=== PATIENT | female | born 1950 | race Caucasian/White ===

== ENCOUNTER → 2016-09-09 | Outpatient (CLI) | payer MEDICARE, OTHER ==
--- NOTE | 2016-09-09 11:56 | US ---
EXAMINATION: Ultrasound guided right thyroid biopsy HISTORY: Nodule COMPARISON: 08/23/2016 TECHNIQUE: The procedure, risks, and benefits were discussed with the patient. Informed consent was obtained. The overlying area was sterilely prepped and draped. 1% lidocaine was administered for loc al anesthesia. Using ultrasound guidance a total of 2 18-gauge core biopsies were obtained. The mark ent tolerated the procedure well. No immediate complications. IMPRESSION: Successful ultrasound-guided core biopsy of a right thyroid nodule.
== END ==
LOC: MW.US 10:09
PROVIDERS: ATTEND Family Medicine
DX: E04.1 Nontoxic single thyroid nodule (principal)
CPT/HCPCS: 60100; 60100-RT; 88305

== ENCOUNTER 2017-03-20 10:51 | Emergency (ER) | payer MEDICARE, OTHER ==
[2017-03-20 11:32] VITALS: BP 172/74
[2017-03-20] MEDS ORDERED: Ondansetron 4 MG Tab.DIS PO ONE (11:35)
[2017-03-20] MEDS ORDERED: Morphine 4 MG/ML Syringe IM ONE (11:35)
--- NOTE | 2017-03-20 11:45 | EDM.PDOC ---
ED HPI GENERAL MEDICAL PROBLEM - General Chief Complaint: Upper Extremity Injury/Pain Stated Complaint: LT SHOULDER PAIN Time Seen by Provider: 03/20/17 11:20 Source of Information: Reports: Patient History Limitations: Reports: No Limitations - History of Present Illness INITIAL COMMENTS - FREE TEXT/NARRATIVE: HISTORY AND PHYSICAL: History of present illness: Patient is a 66-year-old female who presents to the emergency room with complaints of left shoulder, elbow and wrist pain after falling onto her left side off of 2 steps. She states that she has been having difficulty with her right lower extremity which "will give out". She currently is seeing a provider and is having further evaluation of her right lower extremity. Today she was going up the stairs and her right leg gave out" and she fell on the left shoulder. She denies any head injury or loss of consciousness. Resting on the cot, the patient is guarding her arm and towards her body. She is able to wiggle her fingers and has a good strong radial pulse. She states when she starts moving the left elbow pain does shoot down into her left wrist. She is declining to attempt to move the left shoulder. Review of systems: As per history of present illness and below otherwise all systems reviewed and negative. Past medical history: As per history of present illness and as reviewed below otherwise noncontributory. Surgical history: As per history of present illness and as reviewed below otherwise noncontributory. Social history: No reported history of drug or alcohol abuse. Family history: As per history of present illness and as reviewed below otherwise noncontributory. Physical exam: HEENT: Atraumatic, normocephalic, pupils reactive, negative for conjunctival pallor or scleral icterus, mucous membranes moist, throat clear, neck supple, nontender, trachea midline. Lungs: Clear to auscultation, breath sounds equal bilaterally, chest nontender. Heart: S1S2, regular, negative for clicks, rubs, or JVD. Abdomen: Soft, nondistended, nontender. Negative for masses or hepatosplenomegaly. Negative for costovertebral tenderness. Pelvis: Stable nontender. Genitourinary: Deferred. Rectal: Deferred. Extremities: Due to pain the patient is unwilling to attempt range of motion of the left shoulder. Good flexion and extension of the left elbow and wrist, strong radial pulse, capillary refill less than 3 seconds. Denies any numbness or tingling negative for cords or calf pain. Neurovascular unremarkable. Skin: Intact, warm, dry. No open sores, abrasions or lesions. Neuro: Awake, alert, oriented. Cranial nerves II through XII unremarkable. Cerebellum unremarkable. Motor and sensory unremarkable throughout. Exam nonfocal. Patient reports that she is unable to take any form of NSAIDs. I did offer her morphine IM, her family members at the bedside and states she will give her a ride after today's visit. Sling has been applied by nursing staff for comfort. Dr. Olivares also reviewed the x-ray and radiology findings and is agreeable with plan of care. A sugar tong splint was applied to the left upper extremity and secured with a sling. Her menses are closed today, a instrument prescription for Alden 5/325 was prescribed the patient, #30 - NRF. Discussed follow-up with the orthopedic provider. She states she has appointment on 03/25/2017 for evaluation of her right lower extremity. I did request that she called the clinic tomorrow and inform them of her new injury as this will take precedence over her initial appointment. We discussed signs and symptoms that would prompt her to come back to the emergency room. Family is at bedside and also heard this conversation and is agreeable. Patient voices understanding and is agreeable to plan of care. She denies any further questions at this time. Diagnostics: X-ray left shoulder, elbow, wrist Therapeutics: Zofran, morphine Impression: Left shoulder injury Fracture of the proximal left humerus with pseudosubluxation of the humeral head Plan: 1. Please keep the splint on the extremity. The sling is to keep the extremity elevated and to prevent mobility. Rest and ice the extremity. 2. Please take the Alden as prescribed. This medication is a narcotic so please do not drive or take while working as it may cause drowsiness. Zofran has been prescribed to to prevent any nausea. He may take 1 tablet every 8 hours as needed. 3. Call tomorrow to arrange a follow-up appointment with the orthopedist. You stated to have an appointment on 03/25/2017, please inform them that you were seen in the emergency room and need to use that appointment slot for the fracture. 4. Follow-up as we discussed. Return to the ED as needed and as discussed. Definitive disposition and diagnosis as appropriate pending reevaluation and review of above. Onset: Today Duration: Hour(s): Location: Reports: Upper Extremity, Left Right shoulder Pain Score (Numeric/FACES): 6 - Related Data Allergies Allergy/AdvReac Type Severity Reaction Status Date / Time codeine Allergy Vomiting Verified 03/20/17 11:40 Penicillins Allergy Anaphylactic Verified 03/20/17 11:40 Shock Sulfa (Sulfonamide Allergy Facial Verified 03/20/17 11:40 Antibiotics) Swelling Home Meds: Home Meds Meloxicam [Mobic] 15 mg PO DAILY 09/21/13 [History] atorvaSTATin [Lipitor] 10 mg PO BEDTIME 09/21/13 [History] metFORMIN [Glucophage XR] 500 mg PO ASDIRECTED 09/21/13 [History] Aspirin [Adult Low Dose Aspirin EC] 81 mg PO DAILY 09/22/13 [History] Fish Oil/[place]-3 Fatty Acids [Fish Oil 1,000 MG] 1,000 mg PO DAILY 09/22/13 [ History] Hydrocodone/Acetaminophen [Hydrocodon-Acetaminophn 10-325] 1 tab PO Q4H PRN #60 tablet 09/22/13 [Rx] Multivitamin [Multi-Vitamin Daily] 1 tab PO DAILY 09/22/13 [History] Cholecalciferol (Vitamin D3) [Vitamin D] 1 tab PO DAILY 02/22/14 [History] Glycerin/Propylene Glycol [Artificial Tears Drops] 1 drop EYEBOTH BID PRN [History] Biotin 5,000 mcg PO 03/20/17 [History] Losartan [Cozaar] 100 mg PO DAILY 03/20/17 [History] sitaGLIPtin Phos/Metformin HCl [Janumet Xr 100-1,000 mg Tablet] 1 tab PO DAILY 03/20/17 [History] Past Medical History Cardiovascular History: Reports: Hypertension Gastrointestinal History: Reports: GERD Genitourinary History: Reports: None Endocrine/Metabolic History: Reports: Diabetes, Type II - Infectious Disease History Infectious Disease History: Reports: Chicken Pox, Mumps - Past Surgical History Cardiovascular Surgical History: Reports: None Female Surgical History: Reports: Hysterectomy Musculoskeletal Surgical History: Reports: Other (See Below) Other Musculoskeletal Surgeries/Procedures:: left wrist pins, right ankle pins Social & Family History - Family History Family Medical History: Noncontributory - Tobacco Use Smoking Status *Q: Never Smoker Years of Tobacco use: 30 Used Tobacco, but Quit: Yes Second Hand Smoke Exposure: No - Caffeine Use Caffeine Use: Reports: Coffee, Energy Drinks, Soda, Tea - Alcohol Use Days Per Week of Alcohol Use: 0 Number of Drinks Per Day: 0 Total Drinks Per Week: 0 - Recreational Drug Use Recreational Drug Use: No Drug Use in Last 12 Months: No Review of Systems - Review of Systems Review Of Systems: ROS reveals no pertinent complaints other than HPI. ED EXAM, GENERAL - Physical Exam Exam: See Below (See dictation) Course - Vital Signs Last Recorded V/S: Last Vital Signs Temp 36.1 C 03/20/17 10:51 Pulse 76 03/20/17 10:51 Resp 16 03/20/17 10:51 BP 172/74 H 03/20/17 10:51 Pulse Ox 95 03/20/17 10:51 - Orders/Labs/Meds Orders: Active Orders 24 hr Category Date Time Status Communication Order [RC] STAT Care 03/20/17 12:15 Ordered Elbow 2V Lt [CR] Stat Exams 03/20/17 11:00 Taken Shoulder Comp Lt [CR] Stat Exams 03/20/17 11:00 Taken Wrist Comp Min 3V Lt [CR] Stat Exams 03/20/17 11:00 Taken Meds: Medications Discontinued Medications Generic Name Dose Route Start Last Admin Trade Name Charlene PRN Reason Stop Dose Admin Morphine Sulfate 4 mg 03/20/17 11:35 03/20/17 11:44 Morphine IM 03/20/17 11:36 4 mg ONETIME ONE Administration Ondansetron HCl 4 mg 03/20/17 11:35 03/20/17 11:45 Zofran Odt PO 03/20/17 11:36 4 mg ONETIME ONE Administration Departure - Departure Time of Disposition: 12:27 Disposition: Home, Self-Care 01 Clinical Impression: Fracture of humerus Qualifiers: Encounter type: initial encounter Humerus Location: proximal Fracture type: closed Fracture morphology: unspecified fracture morphology Laterality: left Qualified Code(s): S42.202A - Unspecified fracture of upper end of left humerus , initial encounter for closed fracture - Discharge Information Referrals: PCP,Unknown [Primary Care Provider] - Forms: ED Department Discharge Additional Instructions: My general discharge The following information is given to patients seen in the emergency department who are being discharged to home. This information is to outline your options for follow-up care. We provide all patients seen in our emergency department with a follow-up referral. The need for follow-up, as well as the timing and circumstances, are variable depending upon the specifics of your emergency department visit. If you don't have a primary care physician on staff, we will provide you with a referral. We always advise you to contact your personal physician following an emergency department visit to inform them of the circumstance of the visit and for follow-up with them and/or the need for any referrals to a consulting specialist. The emergency department will also refer you to a specialist when appropriate. This referral assures that you have the opportunity for follow-up care with a specialist. All of these measure are taken in an effort to provide you with optimal care, which includes your follow-up. Under all circumstances we always encourage you to contact your private physician who remains a resource for coordinating your care. When calling for follow-up care, please make the office aware that this follow-up is from your recent emergency room visit. If for any reason you are refused follow-up, please contact the [facility] Emergency Department at and asked to speak to the emergency department charge nurse. [facility] Primary Care [facility] [place] [id number] [facility] Specialty Care - Orthopedic Clinic Professional Building [address] [place] [address], [address] [place] [address] 1. Please keep the splint on the extremity. The sling is to keep the extremity elevated and to prevent mobility. Rest and ice the extremity. 2. Please take the Alden as prescribed. This medication is a narcotic so please do not drive or take while working as it may cause drowsiness. Zofran has been prescribed to to prevent any nausea. He may take 1 tablet every 8 hours as needed. 3. Call tomorrow to arrange a follow-up appointment with the orthopedist. You stated to have an appointment on 03/25/2017, please inform them that you were seen in the emergency room and need to use that appointment slot for the fracture. 4. Follow-up as we discussed. Return to the ED as needed and as discussed. - My Orders Last 24 Hours: My Active Orders 03/20/17 11:00 Elbow 2V Lt [CR] Stat Shoulder Comp Lt [CR] Stat Wrist Comp Min 3V Lt [CR] Stat 03/20/17 12:15 Communication Order [RC] STAT - Assessment/Plan Last 24 Hours: My Active Orders 03/20/17 11:00 Elbow 2V Lt [CR] Stat Shoulder Comp Lt [CR] Stat Wrist Comp Min 3V Lt [CR] Stat 03/20/17 12:15 Communication Order [RC] STAT
--- NOTE | 2017-03-21 13:14 | CR ---
EXAM DATE: 03/20/17 PATIENT'S AGE: 66 Patient: YING GRIMES Facility: [place], [place] Site . Site : 1950 Study: XRay Shoulder Left [id number]/2017 11:43:01 AM Ordering Physician: Doctor Wilkinson Final Report: INDICATION: Pain after fall. Technique: Three views of the left shoulder. Findings: Fracture of the surgical neck of the humerus. Fracture fragments in good position. Pseudosubluxation of the humeral head with respect to the glenoid fossa as a result of edema and blood within the joint. No true dislocation. Arthritic change about the glenohumeral joint space. Impression: Fracture of the proximal left humerus with pseudosubluxation of the humeral head with respect to the glenoid fossa. Dictated by Flaquito Andrade MD @ Mar 20 2017 11:51AM (Electronic Signature) Report Signed by Proxy. SUNIL
--- NOTE | 2017-03-21 13:14 | CR ---
EXAM DATE: 03/20/17 PATIENT'S AGE: 66 Patient: YING GRIMES Facility: [place], [place] Site . Site : 1950 Study: XRay Extremity Left Wrist [id number]/23/2017 11:42:07 AM Ordering Physician: Doctor Wilkinson Final Report: INDICATION: Pain after fall. Technique: Three views of the left wrist. Findings: No acute fracture or dislocation. Volar plate and screw fixation of a fracture of the radius. Hardware intact and in good position. Fracture line not visible. Soft tissues are unremarkable. Impression: 1. No acute fracture or dislocation. 2. ORIF left radius without complication. Dictated by Flaquito Andrade MD @ Mar 20 2017 11:49AM (Electronic Signature) Report Signed by Proxy. SUNIL
--- NOTE | 2017-03-21 13:15 | CR ---
EXAM DATE: 03/20/17 PATIENT'S AGE: 66 Patient: YING GRIMES Facility: [place], [place] Site . Site : 1950 Study: XRay Extremity Left Elbow [id number]/23/2017 11:44:08 AM Ordering Physician: Doctor Wilkinson Final Report: INDICATION: Pain after fall. Technique: Two views of the left elbow. Findings: No acute fracture, dislocation, or joint effusion. Impression: Negative left elbow. Dictated by Flaquito Andrade MD @ Mar 20 2017 11:53AM (Electronic Signature) Report Signed by Proxy. [facility]ERN[facility]ant
== END 2017-03-20 12:40 | disposition home or self-care (01) ==
LOC: MW.ED 10:51
DX: S42.202A Unspecified fracture of upper end of left humerus, initial encounter for closed fracture (principal); I10 Essential (primary) hypertension; E11.9 Type 2 diabetes mellitus without complications; Z98.890 Other specified postprocedural states; Z87.891 Personal history of nicotine dependence; Z79.82 Long term (current) use of aspirin; Z79.84 Long term (current) use of oral hypoglycemic drugs; Z79.899 Other long term (current) drug therapy; Z88.0 Allergy status to penicillin; Z88.2 Allergy status to sulfonamides; Z88.5 Allergy status to narcotic agent; W10.8XXA Fall (on) (from) other stairs and steps, initial encounter
CPT/HCPCS: 29105; 29799; 73030; 73070; 73110; 96372; 99283; A4566; A9270; J2270; 99284

== ENCOUNTER 2017-06-09 19:51 | Emergency (ER) | payer MEDICARE, OTHER ==
--- NOTE | 2017-06-09 20:15 | EDM.PDOC ---
ED HPI GENERAL MEDICAL PROBLEM - General Chief Complaint: Flank Pain Stated Complaint: POSSIBLE KIDNEY STONE Time Seen by Provider: 06/09/17 20:20 Source of Information: Reports: Patient History Limitations: Reports: No Limitations - History of Present Illness INITIAL COMMENTS - FREE TEXT/NARRATIVE: HISTORY AND PHYSICAL: History of present illness: [Patient comes to the emergency room complaining of left flank pain. Pain came on suddenly at 5 PM this evening. Patient has a history of kidney stones and these symptoms are consistent with previous episodes of kidney stones. Has had prior lithotripsy. In the past kidney stones only affected her right side, and this is her first event with pain on her left side. She complains of extreme nausea, and pain to her left flank radiating into her lower abdomen. She does not have an appetite due to the pain. She's not had any vomiting diarrhea or constipation. No chest pain shortness of breath or difficulty breathing. No headaches sore throat area. She has not had fever or chills. No burning with urination, urinary frequency.] Review of systems: As per history of present illness and below otherwise all systems reviewed and negative. Past medical history: As per history of present illness and as reviewed below otherwise noncontributory. Surgical history: As per history of present illness and as reviewed below otherwise noncontributory. Social history: No reported history of drug or alcohol abuse. Family history: As per history of present illness and as reviewed below otherwise noncontributory. Physical exam: Gen.: HEENT: Atraumatic, normocephalic. Oral mucous membranes are pink and moist. Lungs: Clear to auscultation, breath sounds equal bilaterally. Heart: S1S2, regular rate and rhythm. Abdomen: Obese, Soft, nondistended, nontender. Negative for masses, guarding or rebound. No CVA tenderness with percussion. Pelvis: Stable nontender. Genitourinary: Deferred. Rectal: Deferred. Extremities: Atraumatic, no swelling or cyanosis to her feet or lower legs. Neurovascular unremarkable. Neuro: Awake, alert, oriented. Motor and sensory unremarkable throughout. Exam nonfocal. Diagnostics: [CBC, CMP, UA, CT abdomen and pelvis without contrast] Therapeutics: [Morphine 2 mg IV, Zofran 4 mg IV 2, Toradol 30 mg IV, Flomax 0.4mg po] Impression: [4mm L kidney stone] Plan: [Patient will be discharged to home as her pain and nausea is completely resolved at this time. She is notified of CT results and advised to notify Dr. Raza's office tomorrow of huong's ER visit. She is given a prescription for Flomax 0.4 mg #10 one by mouth daily 0 refills, ketorolac 10 mg #20 sig one tablet by mouth every 6 hours as needed for pain 0 refills is sent to [facility]. She states that she has hydrocodone and a nausea medication at home that she will take when she needs it. Strict return precautions are reviewed she is in agreement with today's plan.] Definitive disposition and diagnosis as appropriate pending reevaluation and review of above. left flank Pain Score (Numeric/FACES): 10 - Related Data Allergies Allergy/AdvReac Type Severity Reaction Status Date / Time codeine Allergy Vomiting Verified 03/20/17 11:40 Penicillins Allergy Anaphylactic Verified 03/20/17 11:40 Shock Sulfa (Sulfonamide Allergy Facial Verified 03/20/17 11:40 Antibiotics) Swelling Home Meds: Home Meds Meloxicam [Mobic] 15 mg PO DAILY 09/21/13 [History] atorvaSTATin [Lipitor] 10 mg PO BEDTIME 09/21/13 [History] metFORMIN [Glucophage XR] 500 mg PO ASDIRECTED 09/21/13 [History] Aspirin [Adult Low Dose Aspirin EC] 81 mg PO DAILY 09/22/13 [History] Fish Oil/[place]-3 Fatty Acids [Fish Oil 1,000 MG] 1,000 mg PO DAILY 09/22/13 [ History] Hydrocodone/Acetaminophen [Hydrocodon-Acetaminophn 10-325] 1 tab PO Q4H PRN #60 tablet 09/22/13 [Rx] Multivitamin [Multi-Vitamin Daily] 1 tab PO DAILY 09/22/13 [History] Cholecalciferol (Vitamin D3) [Vitamin D] 1 tab PO DAILY 02/22/14 [History] Glycerin/Propylene Glycol [Artificial Tears Drops] 1 drop EYEBOTH BID PRN [History] Biotin 5,000 mcg PO 03/20/17 [History] Losartan [Cozaar] 100 mg PO DAILY 03/20/17 [History] sitaGLIPtin Phos/Metformin HCl [Janumet Xr 100-1,000 mg Tablet] 1 tab PO DAILY 03/20/17 [History] Past Medical History Cardiovascular History: Reports: Hypertension Gastrointestinal History: Reports: GERD Genitourinary History: Reports: None Endocrine/Metabolic History: Reports: Diabetes, Type II - Infectious Disease History Infectious Disease History: Reports: Chicken Pox, Mumps - Past Surgical History Cardiovascular Surgical History: Reports: None Female Surgical History: Reports: Hysterectomy Musculoskeletal Surgical History: Reports: Other (See Below) Other Musculoskeletal Surgeries/Procedures:: left wrist pins, right ankle pins Social & Family History - Family History Family Medical History: Noncontributory - Tobacco Use Smoking Status *Q: Never Smoker Years of Tobacco use: 30 Used Tobacco, but Quit: Yes Second Hand Smoke Exposure: No - Caffeine Use Caffeine Use: Reports: Coffee, Energy Drinks, Soda, Tea - Alcohol Use Days Per Week of Alcohol Use: 0 Number of Drinks Per Day: 0 Total Drinks Per Week: 0 - Recreational Drug Use Recreational Drug Use: No Drug Use in Last 12 Months: No ED ROS GENERAL - Review of Systems Review Of Systems: ROS reveals no pertinent complaints other than HPI. ED EXAM, RENAL/ - Physical Exam Exam: See Below Course - Vital Signs Last Recorded V/S: Last Vital Signs Temp 96 F 06/09/17 20:03 Pulse 68 06/09/17 20:03 Resp 22 H 06/09/17 20:03 BP 199/72 H 06/09/17 20:03 Pulse Ox 96 06/09/17 20:03 - Orders/Labs/Meds Orders: Active Orders 24 hr Category Date Time Status Abdomen Pelvis wo Cont [CT] Stat Exams 06/09/17 20:51 Taken Tamsulosin [Flomax] Med 06/09/17 21:35 Once 0.4 mg PO ONETIME ONE Labs: Laboratory Tests 06/09/17 06/09/17 06/09/17 Range/Units 20:20 20:25 20:25 WBC 10.90 (4.0-11.0) K/uL RBC 4.95 (4.30-5.90) M/uL Hgb 12.9 (12.0-16.0) g/dL Hct 38.7 (36.0-46.0) % MCV 78.2 L (80.0-98.0) fL MCH 26.1 L (27.0-32.0) pg MCHC 33.3 (31.0-37.0) g/dL RDW Std Deviation 39.4 (28.0-62.0) fl RDW Coeff of Jeff 14 (11.0-15.0) % Plt Count 217 (150-400) K/uL MPV 10.30 (7.40-12.00) fL Neut % (Auto) 74.6 (48.0-80.0) % Lymph % (Auto) 19.0 (16.0-40.0) % [place] % (Auto) 5.1 (0.0-15.0) % Eos % (Auto) 0.9 (0.0-7.0) % Baso % (Auto) 0.4 (0.0-1.5) % Neut # (Auto) 8.1 H (1.4-5.7) K/uL Lymph # (Auto) 2.1 (0.6-2.4) K/uL [place] # (Auto) 0.6 (0.0-0.8) K/uL Eos # (Auto) 0.1 (0.0-0.7) K/uL Baso # (Auto) 0.0 (0.0-0.1) K/uL Nucleated RBC % 0.0 /100WBC Nucleated RBCs # 0 K/uL Sodium 137 (136-146) mmol/L Potassium 4.7 (3.5-5.1) mmol/L Chloride 106 (98-110) mmol/L Carbon Dioxide 16 L (21-31) mmol/L BUN 12 (6.0-23.0) mg/dL Creatinine 0.7 (0.6-1.5) mg/dL Est Cr Clr Drug Dosing 58.85 mL/min Estimated GFR (MDRD) > 60.0 ml/min Glucose 216 H (60-110) mg/dL Calcium 9.8 (8.8-10.8) mg/dL Total Bilirubin 0.3 (0.1-1.5) mg/dL AST 16 (5-40) IU/L ALT 16 (8-54) IU/L Alkaline Phosphatase 84 (40-150) Total Protein 7.3 (6.0-8.0) g/dL Albumin 4.6 (3.4-4.8) g/dL Globulin 2.7 (2.0-3.5) g/dL Albumin/Globulin Ratio 1.7 (1.3-2.8) Urine Color YELLOW Urine Appearance SLT CLOUDY Urine pH 5.5 (5.0-8.0) Ur Specific [place] 1.020 (1.001-1.035) Urine Protein NEGATIVE (NEGATIVE) mg/dL Urine Glucose (UA) NEGATIVE (NEGATIVE) mg/dL Urine Ketones NEGATIVE (NEGATIVE) mg/dL Urine Occult Blood MODERATE (NEGATIVE) Urine Nitrite NEGATIVE (NEGATIVE) Urine Bilirubin NEGATIVE (NEGATIVE) Urine Urobilinogen 0.2 (<2.0) EU/dL Ur Leukocyte Esterase SMALL (NEGATIVE) Urine RBC 2-5 (0-2/HPF) Urine WBC 1-3 (0-5/HPF) Ur Epithelial Cells FEW (NONE-FEW) Urine Bacteria FEW (NEGATIVE) Meds: Medications Discontinued Medications Generic Name Dose Route Start Last Admin Trade Name Freq PRN Reason Stop Dose Admin Sodium Chloride 1,000 mls @ 999 mls/hr 06/09/17 20:22 06/09/17 20:36 Normal Saline IV 06/09/17 21:22 999 mls/hr STAT ONE Administration Ketorolac Tromethamine 30 mg 06/09/17 20:22 06/09/17 20:37 Toradol IVPUSH 06/09/17 20:23 30 mg ONETIME ONE Administration Morphine Sulfate 2 mg 06/09/17 20:22 06/09/17 20:37 Morphine IVPUSH 06/09/17 20:23 2 mg ONETIME ONE Administration Ondansetron HCl 4 mg 06/09/17 20:22 06/09/17 20:36 Zofran IVPUSH 06/09/17 20:23 4 mg ONETIME ONE Administration Ondansetron HCl 4 mg 06/09/17 21:27 06/09/17 21:32 Zofran IVPUSH 06/09/17 21:28 4 mg ONETIME ONE Administration - Re-Assessments/Exams Free Text/Narrative Re-Assessment/Exam: 06/09/17 21:28 Pain is now 0 out of 10. Nausea 5 out of 10. Zofran 4 mg IV as ordered. Waiting on results of CT. Departure - Departure Time of Disposition: 21:45 Disposition: Home, Self-Care 01 Condition: Good Clinical Impression: Kidney stone on left side - Discharge Information Referrals: Noel Tate MD [Primary Care Provider] - Forms: ED Department Discharge Additional Instructions: The following information is given to patients seen in the emergency department who are being discharged to home. This information is to outline your options for follow-up care. We provide all patients seen in our emergency department with a follow-up referral. The need for follow-up, as well as the timing and circumstances, are variable depending upon the specifics of your emergency department visit. If you don't have a primary care physician on staff, we will provide you with a referral. We always advise you to contact your personal physician following an emergency department visit to inform them of the circumstance of the visit and for follow-up with them and/or the need for any referrals to a consulting specialist. The emergency department will also refer you to a specialist when appropriate. This referral assures that you have the opportunity for follow-up care with a specialist. All of these measure are taken in an effort to provide you with optimal care, which includes your follow-up. Under all circumstances we always encourage you to contact your private physician who remains a resource for coordinating your care. When calling for follow-up care, please make the office aware that this follow-up is from your recent emergency room visit. If for any reason you are refused follow-up, please contact the [facility] emergency department at and asked to speak to the emergency department charge nurse. [facility] - Urology [address] [place] [id number] Follow-up with your urologist at the clinic listed above in the next couple of days. Take medications as prescribed, push fluids, strain urine. Return to ER as needed as discussed. - My Orders Last 24 Hours: My Active Orders 06/09/17 20:51 Abdomen Pelvis wo Cont [CT] Stat 06/09/17 21:35 Tamsulosin [Flomax] 0.4 mg PO ONETIME ONE - Assessment/Plan Last 24 Hours: My Active Orders 06/09/17 20:51 Abdomen Pelvis wo Cont [CT] Stat 06/09/17 21:35 Tamsulosin [Flomax] 0.4 mg PO ONETIME ONE
[2017-06-09] MEDS ORDERED: Ketorolac 30 MG/ML SDV IVPUSH ONE (20:22)
[2017-06-09] MEDS ORDERED: Ondansetron 4 MG/2 ML SDV IVPUSH ONE ×2 (20:22→21:27)
[2017-06-09] MEDS ORDERED: Morphine 2 MG/ML Syringe IVPUSH ONE (20:22)
[2017-06-09] MEDS ORDERED: Sodium Chloride 0.9% 1,000 ML IV ONE (20:22)
[2017-06-09 21:08] LABS: CHLORIDE,CL 106 mmol/L (98-110); SODIUM,NA 137 mmol/L (136-146)
[2017-06-09] MEDS ORDERED: Tamsulosin 0.4 MG Cap.ER PO ONE (21:35)
[2017-06-09 21:51] VITALS: BP 163/73
--- NOTE | 2017-06-10 09:33 | CT ---
EXAM DATE: 06/09/17 PATIENT'S AGE: 67 Patient: YING GRIMES Facility: [place], [place] Site . Site : 1950 Study: CT Abdomen/Pelvis Without [id number]/[id number] 9:10:04 PM Ordering Physician: Doctor Wilkinson Final Report: INDICATION: Left flank pain. History of kidney stones. TECHNIQUE: Noncontrast axial images through the abdomen and pelvis with sagittal and coronal reconstructions. COMPARISON: None available. FINDINGS: Kidneys, ureters and urinary bladder: In the mid left ureter on axial image 75, there is a 4 mm stone which results in mild to moderate hydroureteronephrosis. There are approximately 7 nonobstructing intrarenal calculi on the right. There are approximately 7 nonobstructing intrarenal calculi on the left. Urinary bladder is collapsed but appears unremarkable. Remainder of the exam: Heart size is within normal limits. Coronary calcifications are noted. No pericardial effusion. Mild atelectasis versus scarring is seen in lung bases. A benign subpleural nodule is seen in the lingula. The unenhanced liver is unremarkable. Spleen is normal in size. Pancreas appears normal. No calcified stones in the gallbladder. No bile duct dilatation. No suspicious adrenal lesions. Atherosclerotic changes are seen in the abdomen and pelvis. Normal caliber abdominal aorta. No abnormally dilated bowel to suggest obstruction and no appreciable abnormal bowel wall thickening. Colonic diverticulosis. Elongated cecum located in the left mid abdomen. No free air or free fluid. Hysterectomy. No adnexal mass. No acute bony abnormality. Degenerative changes are seen in the lower lumbar spine. IMPRESSION: 1. There is a 4 mm obstructing stone in the mid left ureter, with mild to moderate hydroureteronephrosis. 2. Nonobstructing intrarenal calculi as described above. 3. Incidental findings as noted. Dictated by Noam Maldonado MD @ 06/09/2017 9:26:19 PM Dictated by: Noam Maldonado MD @ 06/09/2017 21:27:07 (Electronic Signature) Report Signed by Proxy. SUNIL
== END 2017-06-09 22:07 | disposition home or self-care (01) ==
LOC: MW.ED 19:51
DX: N13.2 Hydronephrosis with renal and ureteral calculous obstruction (principal); I10 Essential (primary) hypertension; E11.9 Type 2 diabetes mellitus without complications; Z87.891 Personal history of nicotine dependence; Z79.84 Long term (current) use of oral hypoglycemic drugs; Z79.82 Long term (current) use of aspirin; Z79.899 Other long term (current) drug therapy; Z88.0 Allergy status to penicillin; Z88.2 Allergy status to sulfonamides; Z88.5 Allergy status to narcotic agent
CPT/HCPCS: 74176; 80053; 81001; 85025; 96361; 96374; 96375; 96376; 99284; A9270; J1885; J2270; J2405; J7040

== ENCOUNTER 2017-08-24 18:10 | Emergency (ER) | payer MEDICARE, OTHER ==
--- NOTE | 2017-08-24 18:29 | EDM.PDOC ---
ED HPI GENERAL MEDICAL PROBLEM - General Stated Complaint: POSSIBLE BROKEN LT ARM Time Seen by Provider: 08/24/17 18:27 Source of Information: Reports: Patient History Limitations: Reports: No Limitations - History of Present Illness INITIAL COMMENTS - FREE TEXT/NARRATIVE: HISTORY AND PHYSICAL: [] 67-year-old female presenting with suspected broken arm History of Present Illness: [] Patient was at her mom's visiting and her mom asked her to get up and get her something a little bleeding next to them had a walker and her leg in the way she accidentally tripped over this person and falling onto the left arm Denies loss of consciousness or any other injury Review of Systems: As per history of present illness and below otherwise all systems reviewed and negative. Past medical history: As per history of present illness and as reviewed below otherwise noncontributory. Surgical history: As per history of present illness and as reviewed below otherwise noncontributory. Social history: No reported history of drug or alcohol abuse. Family history: As per history of present illness and as reviewed below otherwise noncontributory. Physical exam: Alert and oriented female answering questions appropriately in full sentences without any shortness of breath HEENT: Atraumatic, normocehpalic, pupils reactive, negative for conjunctival pallor or scleral icterus,, r, neck supple, nontender, trachea midline. Lungs: Clear to auscultation, breath sounds equal bilaterally, chest non tender. Heart: S1S2, regular, negative for clicks, rubs, or JVD. Abdomen: Soft, nondistended, nontender. Negative for masses or hepatossplenmegaly. Negative for costovertebral tenderness. Pelvis: Stable nontender. Genitourinary: Deferred. Rectal: Deferred Extremities: Atraumatic, negative for cords or calf pain. Tenderness noted to the mid humerus on left. Position of discomfort is with her arm hanging down. Radial pulses are intact sensation is intact she is able to move her wrist without any difficulty Neurovascular unremarkable. Neuro: Awake, alert, oriented. Cranial nerves II through XII unremarkable. Cerebellum unremarkable. Motor and sensory unremarkable throughout. Exam nonfocal. Diagnostics: []X-ray left humerus Therapeutics: [] Impression: [] Plan: [] Definitive disposition and diagnosis as appropriate pending reevaluation and review of above. Onset: Today, Sudden Duration: Hour(s):, Getting Worse Location: Reports: Upper Extremity, Left Improves with: Reports: None Worsens with: Reports: Movement Context: Reports: Activity Associated Symptoms: Reports: No Other Symptoms Left Arm Pain Score (Numeric/FACES): 7 - Related Data Allergies Allergy/AdvReac Type Severity Reaction Status Date / Time codeine Allergy Vomiting Verified 08/24/17 19:24 Penicillins Allergy Anaphylactic Verified 08/24/17 19:24 Shock Sulfa (Sulfonamide Allergy Facial Verified 08/24/17 19:24 Antibiotics) Swelling Home Meds: Home Meds atorvaSTATin [Lipitor] 10 mg PO DAILY 09/21/13 [History] metFORMIN [Glucophage XR] 1,000 mg PO BEDTIME 09/21/13 [History] Aspirin [Adult Low Dose Aspirin EC] 81 mg PO DAILY 09/22/13 [History] Fish Oil/[place]-3 Fatty Acids [Fish Oil 1,000 MG] 1,000 mg PO DAILY 09/22/13 [ History] Cholecalciferol (Vitamin D3) [Vitamin D] 1 tab PO DAILY 02/22/14 [History] Glycerin/Propylene Glycol [Artificial Tears Drops] 1 drop EYEBOTH BID PRN [History] Biotin 5,000 mcg PO DAILY 03/20/17 [History] Losartan [Cozaar] 100 mg PO DAILY 03/20/17 [History] sitaGLIPtin Phos/Metformin HCl [Janumet Xr 100-1,000 mg Tablet] 1 tab PO DAILY 03/20/17 [History] Esomeprazole Magnesium [Nexium] 40 mg PO DAILY 06/11/17 [History] Hydrocodone/Acetaminophen [Hydrocodon-Acetaminophen 5-325] 1 tab PO ASDIRECTED PRN 06/11/17 [History] Meloxicam 15 mg PO DAILY 06/11/17 [History] Tamsulosin HCl [Flomax] 1 tab PO DAILY 06/11/17 [History] Vit A/Vit C/Vit E/Zinc/Copper [Preservision] 1 tab PO DAILY 06/11/17 [History] Past Medical History HEENT History: Reports: Other (See Below) Other HEENT History: wears glasses Cardiovascular History: Reports: High Cholesterol, Hypertension Respiratory History: Reports: None Gastrointestinal History: Reports: GERD Genitourinary History: Reports: Renal Calculus 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: Musculoskeletal History: Reports: Arthritis, Back Pain, Chronic, Fracture Neurological History: Reports: None Psychiatric History: Reports: None Endocrine/Metabolic History: Reports: Diabetes, Type II, Obesity/BMI 30+ Other Endocrine/Metabolic History: "enlarged thyroid" Hematologic History: Reports: Blood Transfusion(s) Other Hematologic History: transfusion as an infant Immunologic History: Reports: None Oncologic (Cancer) History: Reports: None Dermatologic History: Reports: Psoriasis - Infectious Disease History Infectious Disease History: Reports: Chicken Pox, Mumps - Past Surgical History Head Surgeries/Procedures: Reports: None Cardiovascular Surgical History: Reports: None Female Surgical History: Reports: Hysterectomy, Kidney stone extraction, Lithotripsy/[facility] Endocrine Surgical History: Reports: None Musculoskeletal Surgical History: Reports: Other (See Below) Other Musculoskeletal Surgeries/Procedures:: left wrist pins, right ankle pins, fx humerus Social & Family History - Family History Family Medical History: Noncontributory - Tobacco Use Smoking Status *Q: Former Smoker Years of Tobacco use: 30 Used Tobacco, but Quit: Yes Month/Year Tobacco Last Used: quit smoking 2005 Second Hand Smoke Exposure: No - Caffeine Use Caffeine Use: Reports: Coffee, Energy Drinks, Soda, Tea - Alcohol Use Days Per Week of Alcohol Use: 0 Number of Drinks Per Day: 0 Total Drinks Per Week: 0 - Recreational Drug Use Recreational Drug Use: No Drug Use in Last 12 Months: No Review of Systems - Review of Systems Review Of Systems: ROS reveals no pertinent complaints other than HPI. ED EXAM, GENERAL - Physical Exam Exam: See Below (see dictation) Course - Vital Signs Last Recorded V/S: Last Vital Signs Temp 36.4 C 08/24/17 20:00 Pulse 75 08/24/17 20:00 Resp 20 08/24/17 20:00 BP 178/90 H 08/24/17 20:00 Pulse Ox 94 L 08/24/17 20:00 - Orders/Labs/Meds Orders: Active Orders 24 hr Category Date Time Status Splinting [RC] ASDIRECTED Care 08/24/17 19:31 Active Humerus Lt [CR] Stat Exams 08/24/17 18:26 Taken Meds: Medications Discontinued Medications Generic Name Dose Route Start Last Admin Trade Name Freq PRN Reason Stop Dose Admin Morphine Sulfate 2 mg 08/24/17 19:38 08/24/17 19:54 Morphine IM 04/29/18 19:39 2 mg ONETIME ONE Administration Ondansetron HCl 4 mg 08/24/17 19:39 08/24/17 20:00 Zofran Odt PO 08/24/17 19:40 Not Given ONETIME ONE Departure - Departure Time of Disposition: 19:50 Disposition: DC/Tfer to Acute Hospital 02 Condition: Good Clinical Impression: Fracture of humerus Qualifiers: Encounter type: initial encounter Humerus Location: proximal Fracture type: closed Fracture morphology: unspecified fracture morphology Laterality: left Qualified Code(s): S42.202A - Unspecified fracture of upper end of left humerus , initial encounter for closed fracture - Discharge Information Referrals: Noel Tate MD [Primary Care Provider] - Forms: ED Department Discharge - My Orders Last 24 Hours: My Active Orders 08/24/17 18:26 Humerus Lt [CR] Stat 08/24/17 19:31 Splinting [RC] ASDIRECTED - Assessment/Plan Last 24 Hours: My Active Orders 08/24/17 18:26 Humerus Lt [CR] Stat 08/24/17 19:31 Splinting [RC] ASDIRECTED
[2017-08-24] MEDS ORDERED: Morphine 4 MG/ML Syringe IM ONE (19:38)
[2017-08-24] MEDS ORDERED: Ondansetron 4 MG Tab.DIS PO ONE (19:39)
[2017-08-24 21:07] VITALS: BP 178/90
--- NOTE | 2017-08-25 16:39 | CR ---
EXAM DATE: 08/24/17 PATIENT'S AGE: 67 Patient: YING GRIMES Facility: [place], [place] Site . Site : 1950 Study: XRay Extremity humerus [id number]/29/[id number] 7:02:40 PM Ordering Physician: Doctor Wilkinson Final Report: HISTORY: Fall. FINDINGS/IMPRESSION: Two views of the left humerus demonstrate a comminuted fracture of the left proximal humerus with a nondisplaced fracture line at the greater tubercle, comminuted fracture extending from the humeral neck to the mid diaphysis. There is 1 cm of medial displacement of the proximal metaphysis relative to the humeral head with mild valgus angulation. There is 9 mm of distraction of the smaller fracture fragments of the proximal 1/3 of the humeral diaphysis. There is near anatomic alignment of the major mid and distal fracture fragments. Dictated by Kavya Bruner MD @ 08/24/2017 7:14:54 PM Dictated by: Kavya Bruner MD @ 08/24/2017 19:15:04 (Electronic Signature) Report Signed by Proxy. SUNIL
== END 2017-08-24 20:00 ==
LOC: MW.ED 18:10
DX: S42.202A Unspecified fracture of upper end of left humerus, initial encounter for closed fracture (principal); E78.00 Pure hypercholesterolemia, unspecified; I10 Essential (primary) hypertension; E11.9 Type 2 diabetes mellitus without complications; Z88.5 Allergy status to narcotic agent; Z88.0 Allergy status to penicillin; Z88.2 Allergy status to sulfonamides; Z79.84 Long term (current) use of oral hypoglycemic drugs; Z79.82 Long term (current) use of aspirin; Z79.899 Other long term (current) drug therapy; Z87.891 Personal history of nicotine dependence; W03.XXXA Other fall on same level due to collision with another person, initial encounter
CPT/HCPCS: 73060; 96372; 99285; A4566; J2270

== ENCOUNTER 2018-09-06 21:52 | Emergency (ER) | payer MEDICARE, OTHER ==
[2018-09-06] MEDS ORDERED: Diphtheria,Pertussis(Acell),Tetanus Vaccine 0.5 ML Syringe IM ONE (22:20)
[2018-09-06] MEDS ORDERED: Lidocaine 1% with EPINEPHrine 1:100,000 20 ML MDV INJECT ONE (22:21)
--- NOTE | 2018-09-06 22:24 | EDM.PDOC ---
ED HPI GENERAL MEDICAL PROBLEM - General Chief Complaint: Laceration Stated Complaint: LEFT FOOT ISSUE Time Seen by Provider: 09/06/18 22:16 - History of Present Illness INITIAL COMMENTS - FREE TEXT/NARRATIVE: HISTORY AND PHYSICAL: History of present illness: The patient is a 68-year-old female who was in her usual state of good health when a horse stepped on the back of her left foot and caused a laceration. The patient says that she had no pre-existing issues or systemic complaints prior to this event and she only has pain at the area of the laceration. She is able to move her foot up and down and she has no bony tenderness to the area. She has no proximal leg tenderness and no other trauma from this event She is unsure of her last tetanus shot Review of systems: As per history of present illness and below otherwise all systems reviewed and negative. Past medical history: As per history of present illness and as reviewed below otherwise noncontributory. Surgical history: As per history of present illness and as reviewed below otherwise noncontributory. Social history: No reported history of drug or alcohol abuse. Family history: As per history of present illness and as reviewed below otherwise noncontributory. Physical exam: HEENT: Atraumatic, normocephalic, negative for conjunctival pallor or scleral icterus, mucous membranes moist, throat clear, neck supple, nontender, trachea midline. Lungs: Clear to auscultation, breath sounds equal bilaterally, chest nontender. Heart: S1S2, regular rate and rhythm no overt murmurs Abdomen: Soft, nondistended, nontender. NABS Pelvis: Stable nontender. Genitourinary: Deferred. Rectal: Deferred. Extremities: Atraumatic full range of motion of all extremities with the exception of the left posterior ankle near the Achilles where there is a 4.5 cm laceration without any active bleeding. There is minimal soft tissue swelling and the patient can dorsi and plantar flex the foot without deficits and the Achilles tendon is palpable and intact. The legs are, negative for cords or calf pain. Neurovascular unremarkable. Neuro: Awake, alert, oriented. Cranial nerves II through XII unremarkable. Cerebellum unremarkable. Motor and sensory unremarkable throughout. Exam nonfocal. Diagnostics: [] Therapeutics: Tdap, lidocaine with epinephrine for suturing, wound care and cleansing Procedure note: After the wound was cleansed by nursing and the procedure was explained to the patient 1% lidocaine with epinephrine was infused a local fashion and the wound was explored. No foreign bodies were appreciated. The skin edges were reapproximated using simple interrupted sutures for a total number of 8 sutures of 3-0 nylon. There were no complications and Steri-Strips are applied by nursing along with bacitracin and a gauze dressing. Patient tolerated procedure well Impression: Laceration of left posterior ankle Definitive disposition and diagnosis as appropriate pending reevaluation and review of above. - Related Data Allergies Allergy/AdvReac Type Severity Reaction Status Date / Time codeine Allergy Vomiting Verified 08/24/17 19:24 Penicillins Allergy Anaphylactic Verified 08/24/17 19:24 Shock Sulfa (Sulfonamide Allergy Facial Verified 08/24/17 19:24 Antibiotics) Swelling Home Meds: Home Meds atorvaSTATin [Lipitor] 10 mg PO DAILY 09/21/13 [History] metFORMIN [Glucophage XR] 1,000 mg PO BEDTIME 09/21/13 [History] Aspirin [Adult Low Dose Aspirin EC] 81 mg PO DAILY 09/22/13 [History] Fish Oil/[place]-3 Fatty Acids [Fish Oil 1,000 MG] 1,000 mg PO DAILY 09/22/13 [ History] Cholecalciferol (Vitamin D3) [Vitamin D] 1 tab PO DAILY 02/22/14 [History] Glycerin/Propylene Glycol [Artificial Tears Drops] 1 drop EYEBOTH BID PRN [History] Biotin 5,000 mcg PO DAILY 03/20/17 [History] Losartan [Cozaar] 100 mg PO DAILY 03/20/17 [History] sitaGLIPtin Phos/Metformin HCl [Janumet Xr 100-1,000 mg Tablet] 1 tab PO DAILY 03/20/17 [History] Esomeprazole Magnesium [Nexium] 40 mg PO DAILY 06/11/17 [History] Hydrocodone/Acetaminophen [Hydrocodon-Acetaminophen 5-325] 1 tab PO ASDIRECTED PRN 06/11/17 [History] Meloxicam 15 mg PO DAILY 06/11/17 [History] Tamsulosin HCl [Flomax] 1 tab PO DAILY 06/11/17 [History] Vit A/Vit C/Vit E/Zinc/Copper [Preservision] 1 tab PO DAILY 06/11/17 [History] Past Medical History HEENT History: Reports: Other (See Below) Other HEENT History: wears glasses Cardiovascular History: Reports: High Cholesterol, Hypertension Respiratory History: Reports: None Gastrointestinal History: Reports: GERD Genitourinary History: Reports: Renal Calculus 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: Musculoskeletal History: Reports: Arthritis, Back Pain, Chronic, Fracture Neurological History: Reports: None Psychiatric History: Reports: None Endocrine/Metabolic History: Reports: Diabetes, Type II, Obesity/BMI 30+ Other Endocrine/Metabolic History: "enlarged thyroid" Hematologic History: Reports: Blood Transfusion(s) Other Hematologic History: transfusion as an Immunologic History: Reports: None Oncologic (Cancer) History: Reports: None Dermatologic History: Reports: Psoriasis - Infectious Disease History Infectious Disease History: Reports: Chicken Pox, Mumps - Past Surgical History Head Surgeries/Procedures: Reports: None Cardiovascular Surgical History: Reports: None Female Surgical History: Reports: Hysterectomy, Kidney stone extraction, Lithotripsy/ESWL Endocrine Surgical History: Reports: None Musculoskeletal Surgical History: Reports: Other (See Below) Other Musculoskeletal Surgeries/Procedures:: left wrist pins, right ankle pins, fx humerus Social & Family History - Family History Family Medical History: Noncontributory - Caffeine Use Caffeine Use: Reports: Coffee, Energy Drinks, Soda, Tea ED ROS GENERAL - Review of Systems Review Of Systems: ROS reveals no pertinent complaints other than HPI. ED EXAM, SKIN/RASH Exam: See Below (see Dictation) Course - Vital Signs Last Recorded V/S: Last Vital Signs Temp 36.3 C 09/06/18 22:20 Pulse 75 09/06/18 22:20 Resp 18 09/06/18 22:20 BP 155/76 H 09/06/18 22:20 Pulse Ox 94 L 09/06/18 22:20 - Orders/Labs/Meds Orders: Active Orders 24 hr Category Date Time Status Communication Order [RC] STAT Care 09/06/18 22:20 Active Vaccines to be Administered [RC] PER UNIT ROUTINE Care 09/06/18 22:20 Active Meds: Medications Discontinued Medications Generic Name Dose Route Start Last Admin Trade Name Freq PRN Reason Stop Dose Admin Diphtheria/Tetanus/Acell Pertussis 0.5 ml 09/06/18 22:20 09/06/18 22:40 Adacel IM 09/06/18 22:21 0.5 ml .ONCE ONE Administration Lidocaine/Epinephrine 20 ml 09/06/18 22:21 09/06/18 22:41 Xylocaine 1% With Epinephrine 1:100,000 INJECT 09/06/18 22:22 20 ml ONETIME ONE Administration Departure - Departure Time of Disposition: 00:02 Disposition: Home, Self-Care 01 Condition: Good Clinical Impression: Laceration of ankle Qualifiers: Encounter type: initial encounter Laterality: left Qualified Code(s): S91.012A - Laceration without foreign body, left ankle, initial encounter - Discharge Information Referrals: Noel Tate MD [Primary Care Provider] - Forms: ED Department Discharge Additional Instructions: The following information is given to patients seen in the emergency department who are being discharged to home. This information is to outline your options for follow-up care. We provide all patients seen in our emergency department with a follow-up referral. The need for follow-up, as well as the timing and circumstances, are variable depending upon the specifics of your emergency department visit. If you don't have a primary care physician on staff, we will provide you with a referral. We always advise you to contact your personal physician following an emergency department visit to inform them of the circumstance of the visit and for follow-up with them and/or the need for any referrals to a consulting specialist. The emergency department will also refer you to a specialist when appropriate. This referral assures that you have the opportunity for followup care with a specialist. All of these measure are taken in an effort to provide you with optimal care, which includes your followup. Under all circumstances we always encourage you to contact your private physician who remains a resource for coordinating your care. When calling for followup care, please make the office aware that this follow-up is from your recent emergency room visit. If for any reason you are refused follow-up, please contact the [facility] emergency department at and ask to speak to the emergency department charge nurse. [facility] Primary care- Internal Medicine and Family [address] [id number] Keep the dressing that is placed on in the ED for the next 24 hours then remove and cleanse with mild soap and water pat dry and apply bacitracin or Neosporin. After 2 days. The ointment. Please cleanse the wound and take care of it at least twice a day. Leave it open to air as much as possible and if you need to cover please use a breathable dressing no Band-Aids. Sutures should come out in 10-14 days and he may return here for that removal or see her provider in the clinic. Try to rest and not do much activity over the next 1-2 days so as you can give strength to the repair. - My Orders Last 24 Hours: My Active Orders 09/06/18 22:20 Communication Order [RC] STAT Vaccines to be Administered [RC] PER UNIT ROUTINE - Assessment/Plan Last 24 Hours: My Active Orders 09/06/18 22:20 Communication Order [RC] STAT Vaccines to be Administered [RC] PER UNIT ROUTINE
[2018-09-07 00:15] VITALS: BP 124/73
[2018-09-07] MEDS ORDERED: Bacitracin Oint 1 GM U/D Packet ONE (00:15)
== END 2018-09-07 00:30 | disposition home or self-care (01) ==
LOC: MW.ED 21:52
DX: S91.012A Laceration without foreign body, left ankle, initial encounter (principal); Z23 Encounter for immunization; I10 Essential (primary) hypertension; E78.00 Pure hypercholesterolemia, unspecified; E11.9 Type 2 diabetes mellitus without complications; Z79.84 Long term (current) use of oral hypoglycemic drugs; Z79.899 Other long term (current) drug therapy; Z88.5 Allergy status to narcotic agent; Z88.0 Allergy status to penicillin; Z88.2 Allergy status to sulfonamides; W55.12XA Struck by horse, initial encounter
CPT/HCPCS: 90471; 90715; 99282

== ENCOUNTER 2018-09-19 13:14 | Emergency (ER) | payer MEDICARE, OTHER ==
[2018-09-19 19:16] VITALS: BP 140/64
== END 2018-09-19 13:30 | disposition left against medical advice (07) ==
LOC: MW.ED 13:14
DX: Z53.21 Procedure and treatment not carried out due to patient leaving prior to being seen by health care provider (principal)

== ENCOUNTER 2019-05-15 12:47 | Emergency (ER) | payer MEDICARE, OTHER ==
[2019-05-15] MEDS ORDERED: Ondansetron 4 MG/2 ML SDV IVPUSH ONE (13:15)
[2019-05-15] MEDS ORDERED: Sodium Chloride 0.9% 10 ML SDV IV ONE (13:16)
[2019-05-15] MEDS ORDERED: Morphine 10 MG/ML Syringe IVPUSH ONE (13:17)
[2019-05-15] MEDS ORDERED: Sodium Chloride 0.9% 1,000 ML IV SCH (13:30)
[2019-05-15 13:57] LABS: BLOOD UREA NITROGEN,BUN 12 mg/dL (7.0-18.0); CHLORIDE,CL 102 mmol/L (98-107); GLUCOSE RANDOM 196 mg/dL (74-106); POTASSIUM,K 3.8 mmol/L (3.5-5.1); SODIUM,NA 140 mmol/L (136-145)
--- NOTE | 2019-05-15 14:17 | EDM.PDOC ---
ED [facility] GENERAL MEDICAL PROBLEM - General Chief Complaint: Genitourinary Problem Stated Complaint: POSSIBLE KIDNEY STONE Time Seen by Provider: 05/15/19 14:16 Source of Information: Reports: Patient History Limitations: Reports: No Limitations - History of Present Illness INITIAL COMMENTS - FREE TEXT/NARRATIVE: Patient is a 69-year-old female with a history of hypertension, diabetes, nephrolithiasis presenting with a chief complaint of flank pain and vomiting. She reports the pain is been ongoing for the past 1 week. Patient states the pain is colicky but gradually worsening. Nothing seems to improve the pain. Patient reports associated vomiting which started yesterday. Patient denies any fevers, abdominal pain, dysuria, hematuria. Reports history of prior kidney stones. Patient states the pain is similar to prior kidney stones. Patient reports having stents and lithotripsy in the past for kidney stones. In addition to that documented in the HPI above, the additional ROS was obtained : Constitutional: Denies fevers or chills Eyes: Denies vision changes ENMT: Denies sore throat CV: Denies chest pain Resp: Denies SOB GI: Per HPI : Denies painful urination MSK: Denies recent trauma Skin: Denies new rashes Neuro: Denies new numbness or tingling or weakness I have reviewed the triage vital signs Const: Well nourished, well developed, appears stated age Eyes: PERRL, no conjunctival injection HENT: NCAT, Neck supple without meningismus CV: RRR, Warm, well-perfused extremities RESP: CTAB, Unlabored respiratory effort GI: soft, non-tender, non-distended, no masses MSK: No gross deformities appreciated Skin: Warm, dry. No rashes Neuro: Alert, chief operator II-XII grossly intact. Sensation and motor function of extremities grossly intact. Psych: Appropriate mood and affect Assessment and plan Patient is a 69-year-old female left flank pain and vomiting consistent with kidney stone which is confirmed on CT. The kidney stone on CT demonstrates a 6 mm size with proximal dilatation and mild hydroureter. However, the patient has normal kidney function and no evidence of urinary tract infection. Patient' s pain and vomiting have been controlled in the emergency department. Patient will be treated as an outpatient with instructions to follow-up in the urology clinic within the next 1 week. Patient given strict return precautions. All questions addressed and answered. Patient agrees with plan. bilateral flank Pain Score (Numeric/FACES): 8 - Related Data Allergies Allergy/AdvReac Type Severity Reaction Status Date / Time codeine Allergy Vomiting Verified 05/15/19 13:03 Penicillins Allergy Anaphylactic Verified 05/15/19 13:03 Shock Sulfa (Sulfonamide Allergy Facial Verified 05/15/19 13:03 Antibiotics) Swelling Home Meds: Home Meds Acetaminophen/oxyCODONE [Percocet 325-5 MG] 1 tab PO Q8H PRN #12 tab 05/15/19 [ Rx] Ascorbic Acid [Vitamin C] 1,000 mg PO DAILY 05/15/19 [History] Aspirin 81 mg PO DAILY 05/15/19 [History] Cholecalciferol (Vitamin D3) [Vitamin D3] 5,000 unit PO DAILY 05/15/19 [History] Fish Oil/[place]-3 Fatty Acids [Fish Oil 1,000 MG] 800 mg PO DAILY 05/15/19 [ History] Ibuprofen 400 mg PO Q6H #30 tablet 05/15/19 [Rx] Losartan [Cozaar] 100 mg PO DAILY 05/15/19 [History] Ondansetron [Zofran ODT] 4 mg PO Q6H PRN #21 tab.dis 05/15/19 [Rx] Semaglutide [Ozempic] 0.5 mg SUBCUT WEEKLY 05/15/19 [History] SitaGLIPtin [Januvia] 100 mg PO DAILY 05/15/19 [History] Tamsulosin [Tamsulosin 24 Hr] 0.4 mg PO DAILY #30 cap.er 05/15/19 [Rx] atorvaSTATin [Lipitor] 20 mg PO BEDTIME 05/15/19 [History] traMADol [Ultram] 50 mg PO QID PRN 05/15/19 [History] Past Medical History HEENT History: Reports: Other (See Below) Other HEENT History: wears glasses Cardiovascular History: Reports: High Cholesterol, Hypertension Respiratory History: Reports: None Gastrointestinal History: Reports: GERD Genitourinary History: Reports: Renal Calculus 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: Musculoskeletal History: Reports: Arthritis, Back Pain, Chronic, Fracture Neurological History: Reports: None Psychiatric History: Reports: None Endocrine/Metabolic History: Reports: Diabetes, Type II, Obesity/BMI 30+ Other Endocrine/Metabolic History: "enlarged thyroid" Hematologic History: Reports: Blood Transfusion(s) Other Hematologic History: transfusion as an Immunologic History: Reports: None Oncologic (Cancer) History: Reports: None Dermatologic History: Reports: Psoriasis - Infectious Disease History Infectious Disease History: Reports: Chicken Pox, Mumps - Past Surgical History Head Surgeries/Procedures: Reports: None Cardiovascular Surgical History: Reports: None Female Surgical History: Reports: Hysterectomy, Kidney stone extraction, Lithotripsy/ESWL Endocrine Surgical History: Reports: None Musculoskeletal Surgical History: Reports: Other (See Below) Other Musculoskeletal Surgeries/Procedures:: left wrist pins, right ankle pins, fx humerus Social & Family History - Family History Family Medical History: Noncontributory - Tobacco Use Smoking Status *Q: Former Smoker Used Tobacco, but Quit: Yes Month/Year Tobacco Last Used: 2005 - Caffeine Use Caffeine Use: Reports: Coffee, Energy Drinks, Soda, Tea - Recreational Drug Use Recreational Drug Use: No ED ROS GENERAL - Review of Systems Review Of Systems: See Below ED EXAM, RENAL/ - Physical Exam Exam: See Below Course - Vital Signs Last Recorded V/S: Last Vital Signs Temp 36.1 C 05/15/19 13:04 Pulse 74 05/15/19 14:45 Resp 16 05/15/19 14:45 BP 142/67 H 05/15/19 14:45 Pulse Ox 94 L 05/15/19 14:45 - Orders/Labs/Meds Orders: Active Orders 24 hr Category Date Time Status CULTURE URINE [RM] Stat Lab 05/15/19 13:20 Received Sodium Chloride 0.9% [Normal Saline] 1,000 ml Med 05/15/19 13:30 Active IV STAT Medication Orders Sodium Chloride (Normal Saline) 1,000 mls @ 999 mls/hr IV STAT CRISPIN Last Admin: 05/15/19 13:28 Dose: 999 mls/hr Labs: Laboratory Tests 05/15/19 05/15/19 05/15/19 Range/Units 13:20 13:20 13:20 WBC 9.81 (4.0-11.0) K/uL RBC 5.21 (4.30-5.90) M/uL Hgb 13.1 (12.0-16.0) g/dL Hct 40.8 (36.0-46.0) % MCV 78.3 L (80.0-98.0) fL MCH 25.1 L (27.0-32.0) pg MCHC 32.1 (31.0-37.0) g/dL RDW Std Deviation 39.8 (28.0-62.0) fl RDW Coeff of Jeff 14 (11.0-15.0) % Plt Count 253 (150-400) K/uL MPV 9.90 (7.40-12.00) fL Neut % (Auto) 83.2 H (48.0-80.0) % Lymph % (Auto) 12.9 L (16.0-40.0) % [place] % (Auto) 3.7 (0.0-15.0) % Eos % (Auto) 0.0 (0.0-7.0) % Baso % (Auto) 0.2 (0.0-1.5) % Neut # (Auto) 8.2 H (1.4-5.7) K/uL Lymph # (Auto) 1.3 (0.6-2.4) K/uL [place] # (Auto) 0.4 (0.0-0.8) K/uL Eos # (Auto) 0.0 (0.0-0.7) K/uL Baso # (Auto) 0.0 (0.0-0.1) K/uL Nucleated RBC % 0.0 /100WBC Nucleated RBCs # 0 K/uL Sodium 140 (136-145) mmol/L Potassium 3.8 (3.5-5.1) mmol/L Chloride 102 (98-107) mmol/L Carbon Dioxide 24.0 (21.0-32.0) mmol/L BUN 12 (7.0-18.0) mg/dL Creatinine 0.9 (0.6-1.0) mg/dL Est Cr Clr Drug Dosing 46.66 mL/min Estimated GFR (MDRD) > 60.0 ml/min Glucose 196 H (74-106) mg/dL Calcium 9.7 (8.5-10.1) mg/dL Total Bilirubin 0.3 (0.2-1.0) mg/dL AST 9 L (15-37) IU/L ALT 19 (14-63) IU/L Alkaline Phosphatase 100 (46-116) U/L Total Protein 7.8 (6.4-8.2) g/dL Albumin 3.9 (3.4-5.0) g/dL Globulin 3.9 (2.6-4.0) g/dL Albumin/Globulin Ratio 1.0 (0.9-1.6) Urine Color YELLOW Urine Appearance SLT CLOUDY Urine pH 5.5 (5.0-8.0) Ur Specific [place] 1.025 (1.001-1.035) Urine Protein TRACE H (NEGATIVE) mg/dL Urine Glucose (UA) NEGATIVE (NEGATIVE) mg/dL Urine Ketones NEGATIVE (NEGATIVE) mg/dL Urine Occult Blood LARGE H (NEGATIVE) Urine Nitrite NEGATIVE (NEGATIVE) Urine Bilirubin NEGATIVE (NEGATIVE) Urine Urobilinogen 0.2 (<2.0) EU/dL Ur Leukocyte Esterase TRACE H (NEGATIVE) Urine RBC 75-100 H (0-2/HPF) Urine WBC 2-5 (0-5/HPF) Ur Epithelial Cells FEW (NONE-FEW) Urine Bacteria FEW (NEGATIVE) Meds: Medications Generic Name Dose Route Start Last Admin Trade Name Charlene PRN Reason Stop Dose Admin Sodium Chloride 1,000 mls @ 999 mls/hr 05/15/19 13:30 05/15/19 13:28 Normal Saline IV 999 mls/hr STAT CRISPIN Administration Discontinued Medications Generic Name Dose Route Start Last Admin Trade Name Charlene PRN Reason Stop Dose Admin Ketorolac Tromethamine 15 mg 05/15/19 14:26 05/15/19 14:42 Toradol IVPUSH 05/15/19 14:27 15 mg ONETIME ONE Administration Metoclopramide HCl 10 mg 05/15/19 14:26 05/15/19 14:42 Reglan IVPUSH 05/15/19 14:27 10 mg ONETIME ONE Administration Morphine Sulfate 6 mg 05/15/19 13:17 05/15/19 13:30 Morphine IVPUSH 05/15/19 13:18 6 mg ONETIME ONE Administration Ondansetron HCl 4 mg 05/15/19 13:15 05/15/19 13:29 Zofran IVPUSH 05/15/19 13:16 4 mg ONETIME ONE Administration Departure - Departure Time of Disposition: 15:09 Disposition: Home, Self-Care 01 Clinical Impression: Kidney stone - Discharge Information Prescriptions: Acetaminophen/oxyCODONE [Percocet 325-5 MG] 1 tab PO Q8H PRN #12 tab PRN Reason: Pain (Severe 7-10) Ibuprofen 400 mg PO Q6H #30 tablet Ondansetron [Zofran ODT] 4 mg PO Q6H PRN #21 tab.dis PRN Reason: Nausea Tamsulosin [Tamsulosin 24 Hr] 0.4 mg PO DAILY #30 cap.er Referrals: Noel Tate MD [Primary Care Provider] - Forms: ED Department Discharge Additional Instructions: The following information is given to patients seen in the emergency department who are being discharged to home. This information is to outline your options for follow-up care. We provide all patients seen in our emergency department with a follow-up referral. The need for follow-up, as well as the timing and circumstances, are variable depending upon the specifics of your emergency department visit. If you don't have a primary care physician on staff, we will provide you with a referral. We always advise you to contact your personal physician following an emergency department visit to inform them of the circumstance of the visit and for follow-up with them and/or the need for any referrals to a consulting specialist. The emergency department will also refer you to a specialist when appropriate. This referral assures that you have the opportunity for follow-up care with a specialist. All of these measure are taken in an effort to provide you with optimal care, which includes your follow-up. Under all circumstances we always encourage you to contact your private physician who remains a resource for coordinating your care. When calling for follow-up care, please make the office aware that this follow-up is from your recent emergency room visit. If for any reason you are refused follow-up, please contact the [facility] Emergency Department at and asked to speak to the emergency department charge nurse. Please make a follow-up appointment with the urologist at [facility] to evaluate whether he be eligible for a procedure for stone removal. Sepsis Event Note - Evaluation Sepsis Screening Result: No Definite Risk - Focused Exam Vital Signs: Vital Signs Temp Pulse Resp BP Pulse Ox 05/15/19 14:45 74 16 142/67 H 94 L 05/15/19 13:04 36.1 C 68 18 166/70 H 95 Date Exam was Performed: 05/15/19 Time Exam was Performed: 15:15 - My Orders Last 24 Hours: My Active Orders 05/15/19 13:20 CULTURE URINE [RM] Stat 05/15/19 13:30 Sodium Chloride 0.9% [Normal Saline] 1,000 ml IV STAT - Assessment/Plan Last 24 Hours: My Active Orders 05/15/19 13:20 CULTURE URINE [RM] Stat 05/15/19 13:30 Sodium Chloride 0.9% [Normal Saline] 1,000 ml IV STAT
--- NOTE | 2019-05-15 14:18 | CT ---
CT abdomen and pelvis Technique: Multiple axial sections were obtained from above the dome of the diaphragm inferiorly through the pubic symphysis. Intravenous and oral contrast was not utilized. Study has been performed as a ureteral stone protocol. Comparison: Previous CT abdomen and pelvis exam of 06/09/17. Findings: Multiple nonobstructing calculi are seen within both kidneys. Right proximal ureter is mildly dilated. This is due to an obstructing proximal right ureteral stone measuring 6 mm. Additional partially obstructing ureteral calculus measuring 1.5-2 mm is seen slightly distal to the first stone. No additional ureteral calculi are seen. Findings: Visualized lung bases show nothing acute. Noncontrast appearance of the liver shows no discrete abnormality. Spleen appears within normal limits. Adrenal glands show no nodule. Gallbladder contains no calcified gallstones. Pancreas shows no discrete abnormality. Aorta shows atherosclerotic calcification which continues into the iliac vessels without aneurysm. No retroperitoneal adenopathy or mesenteric abnormalities are appreciated. Appendix is seen which is normal in size. Diverticuli are seen within the sigmoid colon with no inflammatory change of diverticulitis. No free fluid is seen. No inflammatory change is identified. Bone window settings were reviewed. Disc space narrowing is seen at L5-S1 with vacuum phenomena and endplate sclerosis. Degenerative apophyseal change also noted at these 2 levels. Lesser degenerative change is scattered within other portions of the lumbar spine. No acute osseous finding is appreciated. Impression: 1. Numerous nonobstructing calculi within both kidneys. 2. Mildly dilated proximal right ureter caused by a proximal obstructing right ureteral stone measuring 6 mm. Slightly distal to this obstructing stone there is an additional small incompletely obstructing ureteral stone measuring 1.5-2 mm. 3. Other findings which are nonacute as described above. Diagnostic code #3 Study was dictated in [place] Standard Time
[2019-05-15] MEDS ORDERED: Metoclopramide 10 MG/2 ML SDV IVPUSH ONE (14:26)
[2019-05-15] MEDS ORDERED: Ketorolac 30 MG/ML SDV IVPUSH ONE (14:26)
[2019-05-15 14:46] VITALS: BP 142/67; PULSE 74
== END 2019-05-15 15:20 | disposition home or self-care (01) ==
LOC: MW.ED 12:47
DX: N20.2 Calculus of kidney with calculus of ureter (principal); I10 Essential (primary) hypertension; E11.9 Type 2 diabetes mellitus without complications; E66.9 Obesity, unspecified; Z88.0 Allergy status to penicillin; Z88.2 Allergy status to sulfonamides; Z88.5 Allergy status to narcotic agent; Z79.82 Long term (current) use of aspirin; Z79.899 Other long term (current) drug therapy; Z90.710 Acquired absence of both cervix and uterus; Z87.891 Personal history of nicotine dependence
CPT/HCPCS: 36415; 74176; 80053; 81001; 85025; 87086; 96361; 96374; 96375; 99284; J1885; J2270; J2405; J2765; J7030; 99283

== ENCOUNTER 2019-05-16 08:53 | Emergency (ER) | payer MEDICARE, OTHER ==
[2019-05-16] MEDS ORDERED: Ondansetron 4 MG/2 ML SDV ONE (09:04)
[2019-05-16] MEDS ORDERED: Ondansetron 4 MG/2 ML SDV IVPUSH ONE (09:12)
[2019-05-16] MEDS ORDERED: Sodium Chloride 0.9% 1,000 ML IV SCH (09:15)
[2019-05-16] MEDS ORDERED: Ketorolac 15 MG/ML SDV IVPUSH STA (09:16)
[2019-05-16 09:46] LABS: CARBON DIOXIDE,CO2 22.2 mmol/L (21.0-32.0); POTASSIUM,K 3.9 mmol/L (3.5-5.1)
--- NOTE | 2019-05-16 11:03 | EDM.PDOC ---
ED [facility] GENERAL MEDICAL PROBLEM - General Chief Complaint: Flank Pain Stated Complaint: KIDNEY STONE Time Seen by Provider: 05/16/19 11:21 Source of Information: Reports: Patient History Limitations: Reports: No Limitations - History of Present Illness INITIAL COMMENTS - FREE TEXT/NARRATIVE: Patient is a 69-year-old female with a past medical history of kidney stones presenting with flank pain and vomiting. Patient was seen yesterday in the emergency room and was diagnosed with a right-sided kidney stone 6 mm in size. Patient states that the pain worsened overnight and that the oral pain medication she was taking were not helping. Reports 3-4 episodes of vomiting persistent right flank pain with radiation to the groin. Nothing seems to make the symptoms worse. In addition to that documented in the HPI above, the additional ROS was obtained : Constitutional: Denies fevers or chills Eyes: Denies vision changes ENMT: Denies sore throat CV: Denies chest pain Resp: Denies SOB GI: Denies vomiting or diarrhea : Denies painful urination MSK: Denies recent trauma Skin: Denies new rashes Neuro: Denies new numbness or tingling or weakness Endocrine: Denies unexpected weight loss Heme: Denies bleeding disorders I have reviewed the triage vital signs Const: Well nourished, well developed, appears stated age Eyes: PERRL, no conjunctival injection HENT: NCAT, Neck supple without meningismus CV: RRR, Warm, well-perfused extremities RESP: CTAB, Unlabored respiratory effort GI: soft, non-tender, non-distended, no masses MSK: No gross deformities appreciated Skin: Warm, dry. No rashes Neuro: Alert, motor function of extremities grossly intact. Psych: Appropriate mood and affect Assessment and plan Patient is a 69-year-old female with presenting complaint of worsening pain from her kidney stone. Patient had labs reassessed which shows a slight bump in her BUN and creatinine. There is no evidence of systemic infection. Patient given IV fluids and pain medications here in the emergency department. Case discussed with Dr. Molina, the urologist at [facility], who states that the patient can be transferred to be evaluated by her and that she will likely put a stent in her ureter. This required as urology here is not available at this time. Patient will be transferred via private vehicle as she feels her pain is slightly better after IV pain medication and given IV fluids. Patient given instructions to remain n.p.o. until evaluated by urology. All questions addressed and answered. Patient agrees with plan. right flank Pain Score (Numeric/FACES): 10 - Related Data Allergies Allergy/AdvReac Type Severity Reaction Status Date / Time codeine Allergy Vomiting Verified 05/16/19 09:02 Penicillins Allergy Anaphylactic Verified 05/16/19 09:02 Shock Sulfa (Sulfonamide Allergy Facial Verified 05/16/19 09:02 Antibiotics) Swelling Home Meds: Home Meds Acetaminophen/oxyCODONE [Percocet 325-5 MG] 1 tab PO Q8H PRN #12 tab 05/15/19 [ Rx] Ascorbic Acid [Vitamin C] 1,000 mg PO DAILY 05/15/19 [History] Aspirin 81 mg PO DAILY 05/15/19 [History] Cholecalciferol (Vitamin D3) [Vitamin D3] 5,000 unit PO DAILY 05/15/19 [History] Fish Oil/[place]-3 Fatty Acids [Fish Oil 1,000 MG] 800 mg PO DAILY 05/15/19 [ History] Ibuprofen 400 mg PO Q6H #30 tablet 05/15/19 [Rx] Losartan [Cozaar] 100 mg PO DAILY 05/15/19 [History] Ondansetron [Zofran ODT] 4 mg PO Q6H PRN #21 tab.dis 05/15/19 [Rx] Semaglutide [Ozempic] 0.5 mg SUBCUT WEEKLY 05/15/19 [History] SitaGLIPtin [Januvia] 100 mg PO DAILY 05/15/19 [History] Tamsulosin [Tamsulosin 24 Hr] 0.4 mg PO DAILY #30 cap.er 05/15/19 [Rx] atorvaSTATin [Lipitor] 20 mg PO BEDTIME 05/15/19 [History] traMADol [Ultram] 50 mg PO QID PRN 05/15/19 [History] Past Medical History HEENT History: Reports: Other (See Below) Other HEENT History: wears glasses Cardiovascular History: Reports: High Cholesterol, Hypertension Respiratory History: Reports: None Gastrointestinal History: Reports: GERD Genitourinary History: Reports: Renal Calculus 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: Musculoskeletal History: Reports: Arthritis, Back Pain, Chronic, Fracture Neurological History: Reports: None Psychiatric History: Reports: None Endocrine/Metabolic History: Reports: Diabetes, Type II, Obesity/BMI 30+ Other Endocrine/Metabolic History: "enlarged thyroid" Hematologic History: Reports: Blood Transfusion(s) Other Hematologic History: transfusion as an Immunologic History: Reports: None Oncologic (Cancer) History: Reports: None Dermatologic History: Reports: Psoriasis - Infectious Disease History Infectious Disease History: Reports: None - Past Surgical History Head Surgeries/Procedures: Reports: None Cardiovascular Surgical History: Reports: None Female Surgical History: Reports: Hysterectomy, Kidney stone extraction, Lithotripsy/ESWL Endocrine Surgical History: Reports: None Musculoskeletal Surgical History: Reports: Other (See Below) Other Musculoskeletal Surgeries/Procedures:: left wrist pins, right ankle pins, fx humerus Social & Family History - Family History Family Medical History: Noncontributory - Tobacco Use Smoking Status *Q: Never Smoker - Caffeine Use Caffeine Use: Reports: Coffee, Energy Drinks, Soda, Tea - Recreational Drug Use Recreational Drug Use: No ED ROS GENERAL - Review of Systems Review Of Systems: See Below ED EXAM, RENAL/ - Physical Exam Exam: See Below Course - Vital Signs Last Recorded V/S: Last Vital Signs Temp 36.7 C 05/16/19 11:06 Pulse 72 05/16/19 11:06 Resp 16 05/16/19 11:06 BP 158/71 H 05/16/19 11:06 Pulse Ox 94 L 05/16/19 11:06 - Orders/Labs/Meds Orders: Active Orders 24 hr Category Date Time Status Sodium Chloride 0.9% [Normal Saline] 1,000 ml Med 05/16/19 09:15 Active IV STAT Medication Orders Sodium Chloride (Normal Saline) 1,000 mls @ 999 mls/hr IV STAT CRISPIN Last Admin: 05/16/19 09:20 Dose: 999 mls/hr Labs: Laboratory Tests 05/16/19 05/16/19 05/16/19 Range/Units 09:15 09:15 10:15 WBC 10.73 (4.0-11.0) K/uL RBC 4.94 (4.30-5.90) M/uL Hgb 12.5 (12.0-16.0) g/dL Hct 39.3 (36.0-46.0) % MCV 79.6 L (80.0-98.0) fL MCH 25.3 L (27.0-32.0) pg MCHC 31.8 (31.0-37.0) g/dL RDW Std Deviation 41.5 (28.0-62.0) fl RDW Coeff of Jeff 14 (11.0-15.0) % Plt Count 222 (150-400) K/uL MPV 10.00 (7.40-12.00) fL Neut % (Auto) 81.9 H (48.0-80.0) % Lymph % (Auto) 13.0 L (16.0-40.0) % [place] % (Auto) 4.8 (0.0-15.0) % Eos % (Auto) 0.1 (0.0-7.0) % Baso % (Auto) 0.2 (0.0-1.5) % Neut # (Auto) 8.8 H (1.4-5.7) K/uL Lymph # (Auto) 1.4 (0.6-2.4) K/uL [place] # (Auto) 0.5 (0.0-0.8) K/uL Eos # (Auto) 0.0 (0.0-0.7) K/uL Baso # (Auto) 0.0 (0.0-0.1) K/uL Nucleated RBC % 0.0 /100WBC Nucleated RBCs # 0 K/uL Sodium 141 (136-145) mmol/L Potassium 3.9 (3.5-5.1) mmol/L Chloride 103 (98-107) mmol/L Carbon Dioxide 22.2 (21.0-32.0) mmol/L BUN 16 (7.0-18.0) mg/dL Creatinine 1.1 H (0.6-1.0) mg/dL Est Cr Clr Drug Dosing 38.18 mL/min Estimated GFR (MDRD) 49.2 ml/min Glucose 234 H (74-106) mg/dL Calcium 9.6 (8.5-10.1) mg/dL Total Bilirubin 0.3 (0.2-1.0) mg/dL AST 15 (15-37) IU/L ALT 20 (14-63) IU/L Alkaline Phosphatase 93 (46-116) U/L Total Protein 7.6 (6.4-8.2) g/dL Albumin 3.8 (3.4-5.0) g/dL Globulin 3.8 (2.6-4.0) g/dL Albumin/Globulin Ratio 1.0 (0.9-1.6) Urine Color YELLOW Urine Appearance CLEAR Urine pH 5.5 (5.0-8.0) Ur Specific [place] >= 1.030 (1.001-1.035) Urine Protein NEGATIVE (NEGATIVE) mg/dL Urine Glucose (UA) NEGATIVE (NEGATIVE) mg/dL Urine Ketones NEGATIVE (NEGATIVE) mg/dL Urine Occult Blood NEGATIVE (NEGATIVE) Urine Nitrite NEGATIVE (NEGATIVE) Urine Bilirubin NEGATIVE (NEGATIVE) Urine Urobilinogen 0.2 (<2.0) EU/dL Ur Leukocyte Esterase TRACE H (NEGATIVE) Urine RBC 0-1 (0-2/HPF) Urine WBC 2-3 (0-5/HPF) Ur Epithelial Cells FEW (NONE-FEW) Urine Bacteria FEW (NEGATIVE) Meds: Medications Generic Name Dose Route Start Last Admin Trade Name Freq PRN Reason Stop Dose Admin Sodium Chloride 1,000 mls @ 999 mls/hr 05/16/19 09:15 05/16/19 09:20 Normal Saline IV 999 mls/hr STAT CRISPIN Administration Discontinued Medications Generic Name Dose Route Start Last Admin Trade Name Freq PRN Reason Stop Dose Admin Ketorolac Tromethamine 15 mg 05/16/19 09:16 05/16/19 09:21 Toradol IVPUSH 05/16/19 09:17 15 mg STAT STA Administration Ondansetron HCl Confirm 05/16/19 09:04 05/16/19 09:12 Zofran Administered 05/16/19 09:05 Not Given Dose 4 mg .ROUTE .STK-MED ONE Ondansetron HCl 4 mg 05/16/19 09:12 05/16/19 09:16 Zofran IVPUSH 05/16/19 09:13 4 mg ONETIME ONE Administration Departure - Departure Time of Disposition: 11:03 Disposition: DC/Tfer to Other 70 Clinical Impression: Ureteric colic - Discharge Information Referrals: Noel Tate MD [Primary Care Provider] - Forms: ED Department Discharge Sepsis Event Note - Evaluation Sepsis Screening Result: No Definite Risk - Focused Exam Vital Signs: Vital Signs Temp Pulse Resp BP Pulse Ox 05/16/19 11:06 36.7 C 72 16 158/71 H 94 L 05/16/19 10:23 69 96 05/16/19 09:03 36.2 C 74 20 179/66 H 95 Date Exam was Performed: 05/16/19 Time Exam was Performed: 11:21 - My Orders Last 24 Hours: My Active Orders 05/16/19 09:15 Sodium Chloride 0.9% [Normal Saline] 1,000 ml IV STAT - Assessment/Plan Last 24 Hours: My Active Orders 05/16/19 09:15 Sodium Chloride 0.9% [Normal Saline] 1,000 ml IV STAT
[2019-05-16 11:07] VITALS: BP 158/71; PULSE 72
[2019-05-16] MEDS ORDERED: Morphine 4 MG/ML Syringe IVPUSH ONE (11:22)
== END 2019-05-16 11:31 | disposition other institution (70) ==
LOC: MW.ED 08:53
DX: N20.2 Calculus of kidney with calculus of ureter (principal); Z87.442 Personal history of urinary calculi; K21.9 Gastro-esophageal reflux disease without esophagitis; E11.9 Type 2 diabetes mellitus without complications; E66.9 Obesity, unspecified; Z88.5 Allergy status to narcotic agent; Z88.0 Allergy status to penicillin; Z88.2 Allergy status to sulfonamides; Z79.82 Long term (current) use of aspirin; Z79.899 Other long term (current) drug therapy
CPT/HCPCS: 36415; 80053; 81001; 85025; 96360; 96361; 99285; J1885; J2270; J2405; J7030; 99283

== ENCOUNTER 2019-06-22 06:25 | Day surgery (SDC) | payer MEDICARE, OTHER ==
[~2019-06-22 06:25] MED LIST: Ciprofloxacin in D5W 400 MG in Premix Bag 1 BAG IV SCH; Lactated Ringers 1,000 ML IV SCH; Sodium Chloride 0.9% 10 ML SDV IV PRN; Sodium Chloride 0.9% 10 ML Syringe FLUSH PRN; Sodium Chloride 0.9% 2.5 ML Syringe FLUSH PRN
[2019-06-22] MEDS ORDERED: Midazolam 1 MG/ML 2 ML SDV ONE (07:28)
[2019-06-22] MEDS ORDERED: Propofol 200 MG/20 ML SDV ONE (07:28)
[2019-06-22] MEDS ORDERED: fentaNYL 100 MCG/2 ML SDV ONE (07:28)
[2019-06-22] MEDS ORDERED: Lidocaine 2% 5 ML SDV ONE (07:31)
--- NOTE | 2019-06-22 07:41 | PCM.PREANE ---
Preanesthetic Assessment - Anesthesia/Transfusion/Family Hx Anesthesia History: Prior Anesthesia Without Reaction Other Type of Anesthesia Reaction Comment: "my daughter and I have problems with N&V after surgery" Family History of Anesthesia Reaction: No Transfusion History: No Prior Transfusion(s) - Review of Systems General: No Symptoms Pulmonary: No Symptoms Cardiovascular: No Symptoms Gastrointestinal: No Symptoms Neurological: No Symptoms Other: Reports: None - Physical Assessment NPO Status Date: 06/21/19 NPO Status Time: 23:00 Vital Signs: Last Vital Signs Temp 96.8 F L 06/22/19 06:50 Pulse 83 06/22/19 06:50 Resp 16 06/22/19 06:50 BP 125/78 06/22/19 06:50 Pulse Ox 92 L 06/22/19 06:50 Height: 5 ft 1 in Weight: 75.75 kg ASA Class: 2 Mental Status: Alert & Oriented x3 Airway Class: Mallampati = 2 Dentition: Reports: Normal Dentition Lungs: Clear to Auscultation, Normal Respiratory Effort Cardiovascular: Regular Rate, Regular Rhythm - Allergies Allergies/Adverse Reactions: Allergies Allergy/AdvReac Type Severity Reaction Status Date / Time codeine Allergy Vomiting Verified 06/17/19 07:00 Penicillins Allergy Anaphylactic Verified 06/17/19 07:00 Shock prednisone Allergy "I do not Verified 06/17/19 08:50 take due to my psoriasis" Sulfa (Sulfonamide Allergy Anaphylactic Verified 06/17/19 09:07 Antibiotics) Shock - Blood Blood Available: No - Anesthesia Plan Pre-Op Medication Ordered: None - Acknowledgements Anesthesia Type Planned: General Anesthesia Pt an Appropriate Candidate for the Planned Anesthesia: Yes Alternatives and Risks of Anesthesia Discussed w Pt/Guardian: Yes Pt/Guardian Understands and Agrees with Anesthesia Plan: Yes Additional Comments: PMH: dm2, gerd, glaucoma, htn, spinal stenosis, hld PLAN: get PreAnesthesia Questionnaire HEENT History: Reports: Other (See Below) Other HEENT History: wears glasses Cardiovascular History: Reports: High Cholesterol, Hypertension Respiratory History: Reports: None Gastrointestinal History: Reports: GERD Genitourinary History: Reports: Renal Calculus 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: Musculoskeletal History: Reports: Arthritis, Fracture Other Musculoskeletal History: hx fx humerus, fx rt ankle and fx left wrist Neurological History: Reports: None Psychiatric History: Reports: None Endocrine/Metabolic History: Reports: Diabetes, Type II Other Endocrine/Metabolic History: thyroid by x2 Hematologic History: Reports: Blood Transfusion(s) Other Hematologic History: transfusion as an infant Immunologic History: Reports: None Oncologic (Cancer) History: Reports: None Dermatologic History: Reports: Psoriasis - Infectious Disease History Infectious Disease History: Reports: None - Past Surgical History Head Surgeries/Procedures: Reports: None HEENT Surgical History: Reports: None Cardiovascular Surgical History: Reports: None Respiratory Surgical History: Reports: None GI Surgical History: Reports: None Female Surgical History: Reports: Hysterectomy, Kidney stone extraction, Lithotripsy/ESWL Endocrine Surgical History: Reports: None Neurological Surgical History: Reports: Lumbar Spine Other Neurological Surgeries/Procedures: hx back surgery Musculoskeletal Surgical History: Reports: Other (See Below) Other Musculoskeletal Surgeries/Procedures:: left wrist pins, right ankle pins, Oncologic Surgical History: Reports: None Dermatological Surgical History: Reports: None - SUBSTANCE USE Smoking Status *Q: Former Smoker Tobacco Use Within Last Twelve Months: No Recreational Drug Use History: No - HOME MEDS Home Medications: Home Meds Ascorbic Acid [Vitamin C] 1,000 mg PO DAILY 05/15/19 [History] Aspirin 81 mg PO DAILY 05/15/19 [History] Cholecalciferol (Vitamin D3) [Vitamin D3] 5,000 unit PO DAILY 05/15/19 [History] Fish Oil/[place]-3 Fatty Acids [Fish Oil 1,000 MG] 8,000 mg PO DAILY 05/15/19 [ History] Losartan [Cozaar] 100 mg PO DAILY 05/15/19 [History] Ondansetron [Zofran ODT] 4 mg PO Q6H PRN #21 tab.dis 05/15/19 [Rx] Semaglutide [Ozempic] 0.5 mg SUBCUT WEEKLY 05/15/19 [History] SitaGLIPtin [Januvia] 100 mg PO DAILY 05/15/19 [History] atorvaSTATin [Lipitor] 20 mg PO DAILY 05/15/19 [History] traMADol [Ultram] 50 mg PO QID PRN 05/15/19 [History] Celecoxib 200 mg PO DAILY 06/17/19 [History] Lansoprazole [Prevacid] 30 mg PO DAILY 06/17/19 [History] - CURRENT (IN HOUSE) MEDS Current Meds: Current Medications Ciprofloxacin/Dextrose 400 mg/ (Premix) 200 mls @ 200 mls/hr IV ONCALL [facility] Last Admin: 06/22/19 07:20 Dose: 200 mls/hr Lactated Ringer's (Ringers, Lactated) 1,000 mls @ 100 mls/hr IV ASDIRECTED CRISPIN Last Admin: 06/22/19 07:08 Dose: 100 mls/hr Sodium Chloride (Saline Flush) 10 ml FLUSH ASDIRECTED PRN PRN Reason: Keep Vein Open Sodium Chloride (Saline Flush) 2.5 ml FLUSH ASDIRECTED PRN PRN Reason: Keep Vein Open Sodium Chloride (Normal Saline) 10 ml IV ASDIRECTED PRN PRN Reason: IV Use Discontinued Medications Fentanyl (Sublimaze) Confirm Administered Dose 100 mcg .ROUTE .STK-MED ONE Stop: 06/22/19 07:29 Lidocaine (Xylocaine-Mpf 2%) Confirm Administered Dose 5 ml .ROUTE .STK-MED ONE Stop: 06/22/19 07:32 Midazolam HCl (Versed 1 Mg/Ml) Confirm Administered Dose 2 mg .ROUTE .STK-MED ONE Stop: 06/22/19 07:29 Propofol (Diprivan 20 Ml) Confirm Administered Dose 200 mg .ROUTE .STK-MED ONE Stop: 06/22/19 07:29
[2019-06-22] MEDS ORDERED: Sugammadex Sodium 200 MG/2 ML VIAL ONE (07:43)
[2019-06-22] MEDS ORDERED: Iopamidol 200-M 10 ML vial ITHECAL ONE (07:47)
[2019-06-22] MEDS ORDERED: Dexamethasone 4 MG/ML 5 ML MDV ONE (09:07)
[2019-06-22] MEDS ORDERED: Ondansetron 4 MG/2 ML SDV ONE (09:07)
[2019-06-22] MEDS ORDERED: EPINEPHrine 1:10,000 1 MG/10 ML Syringe IVPUSH PRN (10:36)
[2019-06-22] MEDS ORDERED: Atropine 0.1 MG/ML 10 ML Syringe IVPUSH PRN ×2 (10:36)
[2019-06-22] MEDS ORDERED: Albuterol 0.083% 2.5 MG/3 ML Neb Soln NEB PRN (10:36)
[2019-06-22] MEDS ORDERED: fentaNYL 100 MCG/2 ML SDV IVPUSH PRN (10:36)
[2019-06-22] MEDS ORDERED: Naloxone 0.4 MG/ML Syringe IVPUSH PRN (10:36)
[2019-06-22] MEDS ORDERED: 50% Dextrose in Water 50 ML Syringe IVPUSH PRN (10:36)
[2019-06-22] MEDS ORDERED: Phenylephrine/Normal Saline 100 MCG/ML 10 ML Syringe ONE (10:48)
[2019-06-22] MEDS ORDERED: Non-Formulary Medication 1 Each (Tramadol [Ultram] 50 MG) PO PRN (11:24)
[2019-06-22] MEDS ORDERED: Non-Formulary Medication 1 Each (Ondansetron [Zofran Odt] 4 MG) PO PRN (11:24)
[2019-06-22] MEDS ORDERED: SEMAGLUTIDE 0.5 MG SUBCUT SCH (11:30)
--- NOTE | 2019-06-22 12:35 | PCM.POSTAN ---
POST ANESTHESIA ASSESSMENT - MENTAL STATUS Mental Status: Alert, Oriented - VITAL SIGNS Vital Signs: Last Vital Signs Temp 99.3 F 06/22/19 11:06 Pulse 84 06/22/19 11:21 Resp 12 06/22/19 11:21 BP 127/58 L 06/22/19 11:21 Pulse Ox 98 06/22/19 11:21 - RESPIRATORY Respiratory Status: Respiratory Rate WNL, Airway Patent, O2 Saturation Stable - CARDIOVASCULAR CV Status: Pulse Rate WNL, Blood Pressure Stable - GASTROINTESTINAL GI Status: No Symptoms - POST OP HYDRATION Hydration Status: Adequate & Stable
--- NOTE | 2019-06-22 13:20 | PCM48HPAN ---
Post Anesthesia Note - EVALUATION WITHIN 48HRS OF ANESTHETIC Vital Signs in Normal Range: Yes Patient Participated in Evaluation: Yes Respiratory Function Stable: Yes Airway Patent: Yes Cardiovascular Function Stable: Yes Hydration Status Stable: Yes Pain Control Satisfactory: Yes Nausea and Vomiting Control Satisfactory: Yes Mental Status Recovered: Yes Vital Signs: Last Vital Signs Temp 99.3 F 06/22/19 11:06 Pulse 84 06/22/19 11:21 Resp 12 06/22/19 11:21 BP 127/58 L 06/22/19 11:21 Pulse Ox 98 06/22/19 11:21
[2019-06-22 13:46] VITALS: BP 120/77; PULSE 88
--- NOTE | 2019-06-22 15:55 | CR ---
Abdomen: 3 fluoroscopic spot views were obtained centered to the right upper abdomen overlying the renal pelvis. Study obtained utilizing C-arm device. Study shows placement of a right ureteral stent on the final film. Laser device is noted on the 1st film. Fluoroscopy time given as 24.1 seconds. Impression: 1. Procedural study as noted above. Diagnostic code #2 This report was dictated in [place] Standard Time
--- NOTE | 2019-06-22 16:01 | OR ---
SURGEON: Earlene Raza M.D. DATE OF PROCEDURE: 06/22/2019 PREOPERATIVE DIAGNOSIS: Right upper ureteral stone and right renal pelvis stones. POSTOPERATIVE DIAGNOSIS: Right renal pelvis stones. OPERATION: Cystoscopy, double-J stent removal, insertion of a guidewire and a Glidewire. plus laser lithotripsy DESCRIPTION OF PROCEDURE: The flexible ureteroscope was advanced over the Glidewire. There were four good - sized stones between 1 to 1.5 cm that were broken up into multitude of smaller pieces. Stones appeared to be hard as in calcium oxalate monohydrate. At the end and after working approximately 1-1/2 hours into the kidney, it was time to stop. So over the guidewire that was still there, a 6-Pasht[place] 26 cm double-J stent was placed. Position was confirmed with fluoroscopy. The bladder was emptied. The patient was moved to recovery room in good condition. COMPLICATIONS: None. RAFAELA / NOLA /[id number] MTDNishant
[2019-06-23] MEDS ORDERED: [UNRECOGNIZED DRUG - OTHER] PO SCH (09:00)
[2019-06-23] MEDS ORDERED: Non-Formulary Medication 1 Each (Celecoxib [Celecoxib] 200 MG) PO SCH (09:00)
[2019-06-23] MEDS ORDERED: Non-Formulary Medication 1 Each (Lansoprazole [Prevacid] 30 MG) PO SCH (09:00)
[2019-06-23] MEDS ORDERED: OMEGA 3 FATTY ACIDS PO SCH (09:00)
[2019-06-23] MEDS ORDERED: Non-Formulary Medication 1 Each (Losartan 100 MG) PO SCH (09:00)
[2019-06-23] MEDS ORDERED: Aspirin 81 MG Tab.Chew PO SCH (09:00)
[2019-06-23] MEDS ORDERED: Non-Formulary Medication 1 Each (Ascorbic Acid [Vitamin C] 1,000 MG) PO SCH (09:00)
[2019-06-23] MEDS ORDERED: Non-Formulary Medication 1 Each (Sitagliptin [Januvia] 100 MG) PO SCH (09:00)
[2019-06-23] MEDS ORDERED: atorvaSTATin 20 MG Tab PO SCH (09:00)
[2019-06-23] MEDS ORDERED: Non-Formulary Medication 1 Each (Cholecalciferol (Vitamin D3) [Vitamin D3] 5,000 UNIT) PO SCH (09:00)
== END 2019-06-22 13:30 | disposition home or self-care (01) ==
LOC: MW.SDS 06:25
PROVIDERS: ATTEND Urology
DX: N20.0 Calculus of kidney (principal); E11.9 Type 2 diabetes mellitus without complications; I10 Essential (primary) hypertension; E78.5 Hyperlipidemia, unspecified; E78.00 Pure hypercholesterolemia, unspecified; M19.011 Primary osteoarthritis, right shoulder; M19.012 Primary osteoarthritis, left shoulder; K21.9 Gastro-esophageal reflux disease without esophagitis; Z88.0 Allergy status to penicillin; Z88.2 Allergy status to sulfonamides; Z88.5 Allergy status to narcotic agent; Z88.8 Allergy status to other drugs, medicaments and biological substances; Z79.82 Long term (current) use of aspirin; Z79.899 Other long term (current) drug therapy; Z80.51 Family history of malignant neoplasm of kidney; Z87.891 Personal history of nicotine dependence; Z79.84 Long term (current) use of oral hypoglycemic drugs
CPT/HCPCS: 52356; C1769; C2617; J0131; J0744; J1100; J2001; J2250; J2370; J2405; J2704; J3010; J3490; J7120; Q9966

== ENCOUNTER 2019-09-23 06:43 | Day surgery (SDC) | payer MEDICARE, OTHER ==
[~2019-09-23 06:43] MED LIST changes: -Ciprofloxacin in D5W 400 MG in Premix Bag 1 BAG IV SCH
[2019-09-23] MEDS ORDERED: Ciprofloxacin in D5W 400 MG in Premix Bag 1 BAG IV ONE ×2 (07:00)
[2019-09-23] MEDS ORDERED: Lidocaine 2% 5 ML SDV ONE (07:11)
[2019-09-23] MEDS ORDERED: Rocuronium 100 MG/10 ML Syringe ONE (07:13)
[2019-09-23] MEDS ORDERED: Propofol 200 MG/20 ML SDV ONE ×2 (07:13→07:48)
[2019-09-23] MEDS ORDERED: Succinylcholine/Sod PF 100 MG/5 ML SYRINGE IV ONE (07:13)
[2019-09-23] MEDS ORDERED: fentaNYL 100 MCG/2 ML SDV ONE (07:14)
[2019-09-23] MEDS ORDERED: Scopolamine 1.5 MG Transdermal Patch TRDERM PRN (07:15)
[2019-09-23] MEDS ORDERED: Ondansetron 4 MG/2 ML SDV ONE (07:15)
[2019-09-23] MEDS ORDERED: ceFAZolin/Dextrose,Iso-Osmotic 2 GM/50 ML Duplex Bag IV ONE (07:17)
--- NOTE | 2019-09-23 07:19 | PCM.PREANE ---
Preanesthetic Assessment - Anesthesia/Transfusion/Family Hx Anesthesia History: Prior Anesthesia Without Reaction Other Type of Anesthesia Reaction Comment: "my daughter and I have problems with N&V after surgery" Family History of Anesthesia Reaction: No Transfusion History: Prior Transfusion Without Reaction Intubation History: Unknown - Review of Systems General: No Symptoms Pulmonary: No Symptoms Cardiovascular: No Symptoms Gastrointestinal: No Symptoms Neurological: No Symptoms Other: Reports: None - Physical Assessment Vital Signs: Last Vital Signs Temp 36.3 C 09/23/19 06:55 Pulse 61 09/23/19 06:55 Resp 16 09/23/19 06:55 BP 138/65 09/23/19 06:55 Pulse Ox 98 09/23/19 06:55 Height: 5 ft 1 in Weight: 75.296 kg ASA Class: 3 Mental Status: Alert & Oriented x3 Airway Class: Mallampati = 2 Dentition: Reports: Normal Dentition Thyro-Mental Finger Breadths: 3 Mouth Opening Finger Breadths: 3 ROM/Head Extension: Full Lungs: Clear to Auscultation, Normal Respiratory Effort Cardiovascular: Regular Rate, Regular Rhythm - Allergies Allergies/Adverse Reactions: Allergies Allergy/AdvReac Type Severity Reaction Status Date / Time cephalexin Allergy Rash Verified 09/21/19 10:10 codeine Allergy Vomiting Verified 09/21/19 10:01 Penicillins Allergy Anaphylactic Verified 09/21/19 10:01 Shock prednisone Allergy "I do not Verified 09/21/19 10:01 take due to my psoriasis" Sulfa (Sulfonamide Allergy Anaphylactic Verified 09/21/19 10:01 Antibiotics) Shock - Blood Blood Available: No - Anesthesia Plan Pre-Op Medication Ordered: None - Acknowledgements Anesthesia Type Planned: General Anesthesia Pt an Appropriate Candidate for the Planned Anesthesia: Yes Alternatives and Risks of Anesthesia Discussed w Pt/Guardian: Yes Pt/Guardian Understands and Agrees with Anesthesia Plan: Yes PreAnesthesia Questionnaire HEENT History: Reports: Other (See Below) Other HEENT History: wears glasses Cardiovascular History: Reports: High Cholesterol, Hypertension Respiratory History: Reports: None Gastrointestinal History: Reports: GERD Genitourinary History: Reports: Renal Calculus (multiple kidney stones) 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: Musculoskeletal History: Reports: Arthritis, Back Pain, Chronic, Fracture Other Musculoskeletal History: hx fx humerus, fx rt ankle and fx left wrist Neurological History: Reports: None Psychiatric History: Reports: None Endocrine/Metabolic History: Reports: Diabetes, Type II, Obesity/BMI 30+ (BMI 31.4) Other Endocrine/Metabolic History: thyroid bx x2 Hematologic History: Reports: Blood Transfusion(s) Other Hematologic History: transfusion as an Immunologic History: Reports: None Oncologic (Cancer) History: Reports: None Dermatologic History: Reports: Psoriasis - Infectious Disease History Infectious Disease History: Reports: None - Past Surgical History Head Surgeries/Procedures: Reports: None HEENT Surgical History: Reports: None Cardiovascular Surgical History: Reports: None Respiratory Surgical History: Reports: None GI Surgical History: Reports: None Female Surgical History: Reports: Hysterectomy, Kidney stone extraction (x5) , Lithotripsy/ESWL Endocrine Surgical History: Reports: None Neurological Surgical History: Reports: Lumbar Spine Other Neurological Surgeries/Procedures: hx back surgery Musculoskeletal Surgical History: Reports: Other (See Below) Other Musculoskeletal Surgeries/Procedures:: sx fx left wrist & right ankle with pins, Oncologic Surgical History: Reports: None Dermatological Surgical History: Reports: None - SUBSTANCE USE Smoking Status *Q: Former Smoker Tobacco Use Within Last Twelve Months: No - HOME MEDS Home Medications: Home Meds Aspirin 81 mg PO DAILY 05/15/19 [History] Cholecalciferol (Vitamin D3) [Vitamin D3] 5,000 unit PO DAILY 05/15/19 [History] Fish Oil/[place]-3 Fatty Acids [Fish Oil 1,000 MG] 8,000 mg PO DAILY 05/15/19 [ History] Losartan [Cozaar] 100 mg PO DAILY 05/15/19 [History] Semaglutide [Ozempic] 0.5 mg SUBCUT WEEKLY 05/15/19 [History] SitaGLIPtin [Januvia] 100 mg PO DAILY 05/15/19 [History] atorvaSTATin [Lipitor] 20 mg PO DAILY 05/15/19 [History] traMADol [Ultram] 50 mg PO QID PRN 05/15/19 [History] Biotin 5,000 mcg PO DAILY 09/21/19 [History] Celecoxib 200 mg PO DAILY PRN 09/21/19 [History] Cyanocobalamin (Vitamin B12) [Vitamin B12] 1,000 mcg PO DAILY 09/21/19 [History] Lansoprazole [Prevacid] 30 mg PO DAILY 09/21/19 [History] Vit A/Vit C/Vit E/Zinc/Copper [Preservision Areds Softgel] 1 tab PO DAILY [History] - CURRENT (IN HOUSE) MEDS Current Meds: Current Medications Ciprofloxacin/Dextrose 400 mg/ (Premix) 200 mls @ 200 mls/hr IV ONCALL ONE Stop: 09/23/19 07:59 Lactated Ringer's (Ringers, Lactated) 1,000 mls @ 100 mls/hr IV ASDIRECTED CRISPIN Scopolamine (Transderm-Scop) 1.5 mg TRDERM Q72H PRN PRN Reason: Nausea Sodium Chloride (Saline Flush) 10 ml FLUSH ASDIRECTED PRN PRN Reason: Keep Vein Open Sodium Chloride (Saline Flush) 2.5 ml FLUSH ASDIRECTED PRN PRN Reason: Keep Vein Open Sodium Chloride (Normal Saline) 10 ml IV ASDIRECTED PRN PRN Reason: IV Use Discontinued Medications Lidocaine (Xylocaine-Mpf 2%) Confirm Administered Dose 5 ml .ROUTE .STK-MED ONE Stop: 09/23/19 07:12
[2019-09-23] MEDS ORDERED: Iopamidol 200-M 10 ML vial ITHECAL ONE (07:40)
[2019-09-23] MEDS ORDERED: Midazolam 1 MG/ML 2 ML SDV ONE (08:12)
[2019-09-23] MEDS ORDERED: HYDROmorphone 2 MG/ML Syringe ONE (08:38)
[2019-09-23] MEDS ORDERED: HYDROmorphone 2 MG/ML Syringe IVPUSH PRN (09:43)
[2019-09-23] MEDS ORDERED: Celecoxib 100 MG Cap PO PRN (09:43)
[2019-09-23] MEDS: fentaNYL 100 MCG/2 ML SDV IVPUSH PRN ×2 (09:55→10:03)
--- NOTE | 2019-09-23 10:29 | PCM.POSTAN ---
POST ANESTHESIA ASSESSMENT - MENTAL STATUS Mental Status: Alert, Oriented - VITAL SIGNS Vital Signs: Last Vital Signs Temp 36.2 C 09/23/19 10:20 Pulse 61 09/23/19 10:20 Resp 14 09/23/19 10:20 BP 124/57 L 09/23/19 10:20 Pulse Ox 97 09/23/19 10:20 - RESPIRATORY Respiratory Status: Respiratory Rate WNL, Airway Patent, O2 Saturation Stable - CARDIOVASCULAR CV Status: Pulse Rate WNL, Blood Pressure Stable - GASTROINTESTINAL GI Status: No Symptoms - PAIN Pain Score: 4 - POST OP HYDRATION Hydration Status: Adequate & Stable - OBSERVATIONS Free Text/Narrative:: No anesthesia problems.
[2019-09-23 10:46] VITALS: BP 139/68; PULSE 68
--- NOTE | 2019-09-23 11:06 | PCM48HPAN ---
Post Anesthesia Note - EVALUATION WITHIN 48HRS OF ANESTHETIC Vital Signs in Normal Range: Yes Patient Participated in Evaluation: Yes Respiratory Function Stable: Yes Airway Patent: Yes Cardiovascular Function Stable: Yes Hydration Status Stable: Yes Pain Control Satisfactory: Yes Nausea and Vomiting Control Satisfactory: Yes Mental Status Recovered: Yes Vital Signs: Last Vital Signs Temp 36.2 C 09/23/19 10:20 Pulse 68 09/23/19 10:40 Resp 16 09/23/19 10:40 BP 139/68 09/23/19 10:40 Pulse Ox 94 L 09/23/19 10:40 - COMMENTS/OBSERVATIONS Free Text/Narrative:: No anesthesia problems.
--- NOTE | 2019-09-23 14:47 | OR ---
SURGEON: Earlene Raza M.D. DATE OF PROCEDURE: 09/23/2019 PREOPERATIVE DIAGNOSIS: Remaining right lower calyceal stones. POSTOPERATIVE DIAGNOSIS: Remaining right lower calyceal stones. OPERATION: Cystoscopy, removal of double-J stent, insertion of flexible ureteroscope, and laser lithotripsy. DESCRIPTION OF PROCEDURE: The patient was given general anesthesia. She was in dorsal lithotomy position, prepped and draped in sterile drapes. Cystoscope was introduced in the bladder. The double-J stent was removed. A guidewire and Glidewire were both advanced in the right ureter all the way up into the renal pelvis. The flexible ureteroscope was advanced and the stones in the lower pole calyx were identified, broken up into a multitude of smaller pieces. The Zero Tip basket was used to remove some of the stones. With that done, the procedure was terminated. The patient's bladder was emptied, and the patient was moved to recovery room in stable condition. She is to come back and see me as needed. RAFAELA / NOLA /[id number]
[2019-09-24] MEDS ORDERED: atorvaSTATin 20 MG Tab PO SCH (09:00)
[2019-09-24] MEDS ORDERED: Biotin [Biotin] 5,000 MCG PO SCH (09:00)
[2019-09-24] MEDS ORDERED: Aspirin 81 MG Tab.Chew PO SCH (09:00)
--- NOTE | 2019-09-24 14:47 | CR ---
Abdomen: 3 fluoroscopic spot views were obtained of the right upper abdomen. Comparison: Prior abdominal x-ray of 09/01/19. Findings: Previous ureteral stent has been removed. Guidewire is noted as well as laser device. Fluoroscopy time given as 7.5 seconds. Impression: 1. Procedural study as noted above. Diagnostic code #2 This report was dictated in MDT
== END 2019-09-23 11:25 | disposition home or self-care (01) ==
LOC: MW.SDS 06:43
PROVIDERS: ATTEND Urology
DX: N20.0 Calculus of kidney (principal); E11.9 Type 2 diabetes mellitus without complications; K21.9 Gastro-esophageal reflux disease without esophagitis; I10 Essential (primary) hypertension; E66.9 Obesity, unspecified; E78.00 Pure hypercholesterolemia, unspecified; Z88.0 Allergy status to penicillin; Z88.2 Allergy status to sulfonamides; Z88.5 Allergy status to narcotic agent; Z88.1 Allergy status to other antibiotic agents; Z79.82 Long term (current) use of aspirin; Z79.899 Other long term (current) drug therapy; Z87.891 Personal history of nicotine dependence; Z68.31 Body mass index [BMI] 31.0-31.9, adult
CPT/HCPCS: 52353; 76000; 82962; A9270; C1769; J0330; J0744; J2001; J2250; J2405; J2704; J3010; J7120; 00918; 88300; J0690; J1170; Q9966

== ENCOUNTER 2020-01-04 02:00 | Emergency (ER) | payer MEDICARE, OTHER ==
[2020-01-04] MEDS ORDERED: Ondansetron 4 MG/2 ML SDV IVPUSH ONE (02:30)
[2020-01-04] MEDS ORDERED: Ketorolac 15 MG/ML SDV IVPUSH ONE (02:30)
[2020-01-04] MEDS ORDERED: Sodium Chloride 0.9% 2.5 ML Syringe FLUSH PRN (02:30)
[2020-01-04] MEDS ORDERED: Sodium Chloride 0.9% 10 ML Syringe FLUSH PRN (02:30)
[2020-01-04] MEDS ORDERED: Sodium Chloride 0.9% 1,000 ML IV ONE (02:30)
[2020-01-04] MEDS ORDERED: Tamsulosin 0.4 MG Cap.ER PO ONE (02:31)
--- NOTE | 2020-01-04 02:35 | EDM.PDOC ---
ED HPI GENERAL MEDICAL PROBLEM - General Chief Complaint: Flank Pain Stated Complaint: KIDNEY STONE Time Seen by Provider: 01/04/20 02:26 - History of Present Illness INITIAL COMMENTS - FREE TEXT/NARRATIVE: HISTORY AND PHYSICAL: History of present illness: This is a 69-year-old female with a history significant for renal colic in the past who presents the ER today secondary to left flank pain rating to her groin. Patient reports the pain is very similar to her prior kidney stones of which she has had multiple. Patient has any recent fevers, shakes, chills, nausea, vomiting, diarrhea, dysuria, frequency, urgency. Patient has any hematuria. Patient reports the pain is colicky and has been going on for approximately 2 days. Review of systems: As per history of present illness and below otherwise all systems reviewed and negative. Past medical history: As per history of present illness and as reviewed below otherwise noncontributory. Surgical history: As per history of present illness and as reviewed below otherwise noncontributory. Social history: No reported history of drug or alcohol abuse. Family history: As per history of present illness and as reviewed below otherwise noncontributory. Physical exam: HEENT: Atraumatic, normocephalic, pupils reactive, negative for conjunctival pallor or scleral icterus, mucous membranes moist, throat clear, neck supple, nontender, trachea midline. Lungs: Clear to auscultation, breath sounds equal bilaterally, chest nontender. Heart: S1S2, regular, negative for clicks, rubs, or JVD. Abd: Soft, nondistended, no rebound/guarding, no psoas or obturator signs, no tenderness at Mcberney's point, no Hall's sign. Pt does not present with an exam that would be consistent with an acute surgical abdomen at this time. Patient was tenderness to palpation to her left flank region and left side. Pelvis: Stable nontender. Genitourinary: Deferred. Rectal: Deferred. Extremities: Atraumatic, negative for cords or calf pain. Neurovascular unremarkable. Neuro: Awake, alert, oriented. Cranial nerves II through XII unremarkable. Cerebellum unremarkable. Motor and sensory unremarkable throughout. Exam nonfocal. Diagnostics: Urinalysis shows hematuria Therapeutics: Toradol 15 mg IV NSS 1 L wide open Zofran 4 mg IV Flomax 0.4 mg p.o. This is a 69-year-old female who presents ER today with signs and symptoms consistent with renal colic on the left side. Patient has had multiple kidney stones in the past. I have offered the patient obtaining a urinalysis and empirically treating for kidney stone given her multiple stones in the past to avoid radiation however the patient reports she would prefer obtaining a CT scan to determine the size and location of the stone. Patient will have an IV placed including Zofran, Toradol, NSS, Flomax. Patient CT scan reveals a 5.5 mm mid ureteral stone with mild hydronephrosis. Patient's pain is well controlled after 15 mg of IV Toradol. She reports he feels much improved and is resting comfortably playing with her smart phone in the room at this time. Patient reports she feels comfortable with the plan to be discharged home. Patient does have a urologist, Dr. Corcoran, who she will call in the morning to schedule outpatient evaluation. Patient reports that she has had trouble in the past passing smaller stones. Patient will be discharged home with prescription for Percocet, Zofran, ibuprofen, and Flomax. Reassessment at the time of disposition demonstrates that the patient is in no acute distress. The patient has remained stable throughout the entire ED visit and is without objective evidence for acute process requiring urgent intervention or hospitalization. The patient is stable for discharge, counseling is provided as documented above, discussed symptomatic treatment and specific conditions for return. I have spoken with the patient/caregive and discussed todays findings, in addition to providing specific details for the plan of care. Questions are answered and there is agreement with the plan. Definitive disposition and diagnosis as appropriate pending reevaluation and review of above. left flank Pain Score (Numeric/FACES): 6 - Related Data Allergies Allergy/AdvReac Type Severity Reaction Status Date / Time cephalexin Allergy Rash Verified 01/04/20 02:12 codeine Allergy Vomiting Verified 01/04/20 02:12 Penicillins Allergy Anaphylactic Verified 01/04/20 02:12 Shock prednisone Allergy "I do not Verified 01/04/20 02:12 take due to my psoriasis" Sulfa (Sulfonamide Allergy Anaphylactic Verified 01/04/20 02:12 Antibiotics) Shock Home Meds: Home Meds Aspirin 81 mg PO DAILY 05/15/19 [History] Cholecalciferol (Vitamin D3) [Vitamin D3] 5,000 unit PO DAILY 05/15/19 [History] Fish Oil/[place]-3 Fatty Acids [Fish Oil 1,000 MG] 8,000 mg PO DAILY 05/15/19 [History] Losartan [Cozaar] 100 mg PO DAILY 05/15/19 [History] Semaglutide [Ozempic] 0.5 mg SUBCUT WEEKLY 05/15/19 [History] SitaGLIPtin [Januvia] 100 mg PO DAILY 05/15/19 [History] atorvaSTATin [Lipitor] 20 mg PO DAILY 05/15/19 [History] traMADol [Ultram] 50 mg PO QID PRN 05/15/19 [History] Biotin 5,000 mcg PO DAILY 09/21/19 [History] Celecoxib 200 mg PO DAILY PRN 09/21/19 [History] Cyanocobalamin (Vitamin B12) [Vitamin B12] 1,000 mcg PO DAILY 09/21/19 [History] Lansoprazole [Prevacid] 30 mg PO DAILY 09/21/19 [History] Vit A/Vit C/Vit E/Zinc/Copper [Preservision Areds Softgel] 1 tab PO DAILY 09/21/19 [History] Acetaminophen/oxyCODONE [Percocet 325-5 MG] 1 each PO 12 PRN #12 tab 01/04/20 [Rx] Ibuprofen 600 mg PO Q6HR PRN #30 tablet 01/04/20 [Rx] Ondansetron [Zofran ODT] 4 mg PO Q6H PRN #12 tab.dis 01/04/20 [Rx] Tamsulosin [Tamsulosin 24 Hr] 0.4 mg PO BEDTIME #7 cap.er 01/04/20 [Rx] Past Medical History HEENT History: Reports: Other (See Below) Other HEENT History: wears glasses Cardiovascular History: Reports: High Cholesterol, Hypertension Respiratory History: Reports: None Gastrointestinal History: Reports: GERD Genitourinary History: Reports: Renal Calculus ECONOMIC SPECIALIST History: Reports: Musculoskeletal History: Reports: Arthritis, Back Pain, Chronic, Fracture Other Musculoskeletal History: hx fx humerus, fx rt ankle and fx left wrist Neurological History: Reports: None Psychiatric History: Reports: None Endocrine/Metabolic History: Reports: Diabetes, Type II, Obesity/BMI 30+ Other Endocrine/Metabolic History: thyroid bx x2 Insulin Pump Model and Topographical Engineer: None Hematologic History: Reports: Blood Transfusion(s) Other Hematologic History: transfusion as an infant Immunologic History: Reports: None Oncologic (Cancer) History: Reports: None Dermatologic History: Reports: Psoriasis - Infectious Disease History Infectious Disease History: Reports: None - Past Surgical History Head Surgeries/Procedures: Reports: None HEENT Surgical History: Reports: None Cardiovascular Surgical History: Reports: None Respiratory Surgical History: Reports: None GI Surgical History: Reports: None Female Surgical History: Reports: Hysterectomy, Kidney stone extraction, Lithotripsy/ESWL Endocrine Surgical History: Reports: None Neurological Surgical History: Reports: Lumbar Spine Other Neurological Surgeries/Procedures: hx back surgery Musculoskeletal Surgical History: Reports: Other (See Below) Other Musculoskeletal Surgeries/Procedures:: sx fx left wrist & right ankle with pins, Oncologic Surgical History: Reports: None Dermatological Surgical History: Reports: None Social & Family History - Family History Family Medical History: Noncontributory - Tobacco Use Smoking Status *Q: Never Smoker - Caffeine Use Caffeine Use: Reports: Coffee - Recreational Drug Use Recreational Drug Use: No ED ROS GENERAL - Review of Systems Review Of Systems: See Below ED EXAM, GENERAL - Physical Exam Exam: See Below Course - Vital Signs Last Recorded V/S: Last Vital Signs Temp 97.8 F 01/04/20 02:12 Pulse 77 01/04/20 02:12 Resp 18 01/04/20 02:12 BP 121/67 01/04/20 02:12 Pulse Ox 98 01/04/20 02:12 - Orders/Labs/Meds Orders: Active Orders 24 hr Category Date Time Status Abdomen Pelvis wo Cont [CT] Stat Exams 01/04/20 02:30 Taken Sodium Chloride 0.9% [Normal Saline] 1,000 ml Med 01/04/20 02:30 Active IV .Bolus Sodium Chloride 0.9% [Saline Flush] Med 01/04/20 02:30 Active 10 ml FLUSH ASDIRECTED PRN Sodium Chloride 0.9% [Saline Flush] Med 01/04/20 02:30 Active 2.5 ml FLUSH ASDIRECTED PRN Saline Lock Insert [OM.PC] Stat Oth 01/04/20 02:30 Ordered Medication Orders Sodium Chloride (Normal Saline) 1,000 mls @ 999 mls/hr IV .Bolus ONE Stop: 01/04/20 03:30 Last Admin: 01/04/20 02:38 Dose: 999 mls/hr Documented by: JEANCARLOS Sodium Chloride (Saline Flush) 10 ml FLUSH ASDIRECTED PRN PRN Reason: Keep Vein Open Sodium Chloride (Saline Flush) 2.5 ml FLUSH ASDIRECTED PRN PRN Reason: Keep Vein Open Labs: Laboratory Tests 01/04/20 01/04/20 01/04/20 Range/Units 02:15 02:38 02:38 WBC 14.86 H (4.0-11.0) K/uL RBC 5.42 (4.30-5.90) M/uL Hgb 13.0 (12.0-16.0) g/dL Hct 41.3 (36.0-46.0) % MCV 76.2 L (80.0-98.0) fL MCH 24.0 L (27.0-32.0) pg MCHC 31.5 (31.0-37.0) g/dL RDW Std Deviation 42.6 (28.0-62.0) fl RDW Coeff of Jeff 15 (11.0-15.0) % Plt Count 265 (150-400) K/uL MPV 9.40 (7.40-12.00) fL Neut % (Auto) 73.8 (48.0-80.0) % Lymph % (Auto) 16.7 (16.0-40.0) % [place] % (Auto) 8.5 (0.0-15.0) % Eos % (Auto) 0.9 (0.0-7.0) % Baso % (Auto) 0.1 (0.0-1.5) % Neut # (Auto) 11.0 H (1.4-5.7) K/uL Lymph # (Auto) 2.5 H (0.6-2.4) K/uL [place] # (Auto) 1.3 H (0.0-0.8) K/uL Eos # (Auto) 0.1 (0.0-0.7) K/uL Baso # (Auto) 0.0 (0.0-0.1) K/uL Nucleated RBC % 0.0 /100WBC Nucleated RBCs # 0 K/uL Sodium 134 L (136-145) mmol/L Potassium 3.9 (3.5-5.1) mmol/L Chloride 98 (98-107) mmol/L Carbon Dioxide 23.5 (21.0-32.0) mmol/L BUN 21 H (7.0-18.0) mg/dL Creatinine 1.2 H (0.6-1.0) mg/dL Est Cr Clr Drug Dosing 33.39 mL/min Estimated GFR (MDRD) 44.5 ml/min Glucose 177 H (74-106) mg/dL Calcium 9.6 (8.5-10.1) mg/dL Urine Color YELLOW Urine Appearance CLOUDY Urine pH 5.5 (5.0-8.0) Ur Specific [place] 1.020 (1.001-1.035) Urine Protein TRACE H (NEGATIVE) mg/dL Urine Glucose (UA) NEGATIVE (NEGATIVE) mg/dL Urine Ketones NEGATIVE (NEGATIVE) mg/dL Urine Occult Blood LARGE H (NEGATIVE) Urine Nitrite NEGATIVE (NEGATIVE) Urine Bilirubin NEGATIVE (NEGATIVE) Urine Urobilinogen 0.2 (<2.0) EU/dL Ur Leukocyte Esterase SMALL H (NEGATIVE) Urine RBC 9-15 (0-2/HPF) Urine WBC 0-2 (0-5/HPF) Ur Epithelial Cells RARE (NONE-FEW) Urine Bacteria 2+ H (NEGATIVE) Urine Mucus LIGHT (NONE-MOD) Meds: Medications Generic Name Dose Route Start Last Admin Trade Name Freq PRN Reason Stop Dose Admin Sodium Chloride 1,000 mls @ 999 mls/hr 01/04/20 02:30 01/04/20 02:38 Normal Saline IV 01/04/20 03:30 999 mls/hr .Bolus ONE Administration Sodium Chloride 10 ml 01/04/20 02:30 Saline Flush FLUSH ASDIRECTED PRN Keep Vein Open Sodium Chloride 2.5 ml 01/04/20 02:30 Saline Flush FLUSH ASDIRECTED PRN Keep Vein Open Discontinued Medications Generic Name Dose Route Start Last Admin Trade Name Freq PRN Reason Stop Dose Admin Ketorolac Tromethamine 15 mg 01/04/20 02:30 01/04/20 02:38 Toradol IVPUSH 01/04/20 02:31 15 mg ONETIME ONE Administration Ondansetron HCl 4 mg 01/04/20 02:30 01/04/20 02:38 Zofran IVPUSH 01/04/20 02:31 4 mg ONETIME ONE Administration Tamsulosin HCl 0.4 mg 01/04/20 02:31 01/04/20 02:38 Flomax PO 01/04/20 02:32 0.4 mg ONETIME ONE Administration Departure - Departure Time of Disposition: 03:03 Disposition: Home, Self-Care 01 Condition: Good Clinical Impression: Ureteric colic, Kidney stone on left side - Discharge Information Instructions: Renal Colic, [id number] Referrals: Noel Tate MD [Primary Care Provider] - Earlene Raza MD [Physician] - Forms: ED Department Discharge Additional Instructions: Your ER evaluation reveals that you have a 5.5 mm stone in the mid left ureter causing her symptoms. You will be given a prescription to go home with for pain, nausea, and to help you pass your stone. You will be given a prescription for Percocet, ibuprofen, Zofran, Flomax. Please make an appointment to see Dr. Raza in the next 1 to 2 days to be reevaluated. The following information is given to patients seen in the emergency department who are being discharged to home. This information is to outline your options for follow-up care. We provide all patients seen in our emergency department with a follow-up referral. The need for follow-up, as well as the timing and circumstances, are variable depending upon the specifics of your emergency department visit. If you don't have a primary care physician on staff, we will provide you with a referral. We always advise you to contact your personal physician following an emergency department visit to inform them of the circumstance of the visit and for follow-up with them and/or the need for any referrals to a consulting specialist. The emergency department will also refer you to a specialist when appropriate. This referral assures that you have the opportunity for follow-up care with a specialist. All of these measure are taken in an effort to provide you with optimal care, which includes your follow-up. Under all circumstances we always encourage you to contact your private physician who remains a resource for coordinating your care. When calling for follow-up care, please make the office aware that this follow-up is from your recent emergency room visit. If for any reason you are refused follow-up, please contact the [facility] Emergency Department at and asked to speak to the emergency department charge nurse. Sepsis Event Note (ED) - Evaluation Sepsis Screening Result: No Definite Risk - Focused Exam Vital Signs: Vital Signs Temp Pulse Resp BP Pulse Ox 01/04/20 02:12 97.8 F 77 18 121/67 98 - My Orders Last 24 Hours: My Active Orders 01/04/20 02:30 Abdomen Pelvis wo Cont [CT] Stat Sodium Chloride 0.9% [Normal Saline] 1,000 ml IV .Bolus Sodium Chloride 0.9% [Saline Flush] 10 ml FLUSH ASDIRECTED PRN Sodium Chloride 0.9% [Saline Flush] 2.5 ml FLUSH ASDIRECTED PRN Saline Lock Insert [OM.PC] Stat - Assessment/Plan Last 24 Hours: My Active Orders 01/04/20 02:30 Abdomen Pelvis wo Cont [CT] Stat Sodium Chloride 0.9% [Normal Saline] 1,000 ml IV .Bolus Sodium Chloride 0.9% [Saline Flush] 10 ml FLUSH ASDIRECTED PRN Sodium Chloride 0.9% [Saline Flush] 2.5 ml FLUSH ASDIRECTED PRN Saline Lock Insert [OM.PC] Stat
[2020-01-04 02:59] LABS: CARBON DIOXIDE,CO2 23.5 mmol/L (21.0-32.0); POTASSIUM,K 3.9 mmol/L (3.5-5.1)
--- NOTE | 2020-01-04 03:17 | CT ---
INDICATION: Left flank pain TECHNIQUE: Axial images were obtained from the diaphragm to the pubic symphysis. Reformats were obtained in the coronal and sagittal plane. IV Contrast: None Oral Contrast: None COMPARISON: Abdomen and pelvis CT 08/02/2019 FINDINGS: Lower chest: Patchy ground-glass opacities within the lung bases. Liver: Unremarkable. Normal in size and attenuation. No masses. Gallbladder and bile ducts: Unremarkable. No stones or inflammation. No biliary dilatation. Spleen: Unremarkable. Normal in size without mass. Pancreas: Unremarkable. No mass or inflammation. Adrenal glands: Unremarkable. No nodules. Kidneys: Nephrolithiasis without definite right ureteral stone right hydronephrosis. However, there is inflammatory fat stranding surrounding the left kidney with mild left hydronephrosis. Obstructing proximal left ureteral stone measuring 6 x 5 millimeters. Vasculature: Atherosclerosis without abdominal aortic aneurysm. GI tract: The stomach is unremarkable. There are no dilated loops of large or small intestine with colonic diverticulosis noted. Pelvis: Bladder decompressed. Status posthysterectomy. No adnexal mass. Bones: Degenerative disc disease lumbar spine IMPRESSION: 1. Nephrolithiasis with mild left hydronephrosis and obstructing proximal left ureteral stone measuring 6 x 5 millimeters. 2. Colonic diverticulosis. 3. Patchy ground-glass opacities in the lung bases. Differential is broad including a viral pneumonia, pneumonitis or connective tissue disease. However, this finding is similar to the July 2019 exam. Please note that all CT scans at this facility use dose modulation, iterative reconstruction, and/or weight-based dosing when appropriate to reduce radiation dose to as low as reasonably achievable. Dictated by Valentín Bocanegra MD @ Jan 04 2020 3:09AM Signed by Dr. Valentín Bocanegra @ Jan 04 2020 3:16AM
[2020-01-04 03:42] VITALS: BP 113/57; PULSE 67
== END 2020-01-04 03:40 | disposition home or self-care (01) ==
LOC: MW.ED 02:00
DX: N13.2 Hydronephrosis with renal and ureteral calculous obstruction (principal); I10 Essential (primary) hypertension; E78.00 Pure hypercholesterolemia, unspecified; K21.9 Gastro-esophageal reflux disease without esophagitis; M19.90 Unspecified osteoarthritis, unspecified site; E11.9 Type 2 diabetes mellitus without complications; E66.9 Obesity, unspecified; Z68.29 Body mass index [BMI] 29.0-29.9, adult; Z98.890 Other specified postprocedural states; Z88.1 Allergy status to other antibiotic agents; Z88.5 Allergy status to narcotic agent; Z88.0 Allergy status to penicillin; Z88.8 Allergy status to other drugs, medicaments and biological substances; Z88.2 Allergy status to sulfonamides; Z79.82 Long term (current) use of aspirin; Z79.899 Other long term (current) drug therapy
CPT/HCPCS: 36415; 74176; 80048; 81001; 85025; 96361; 96374; 96375; 99284; A9270; J1885; J2405; J7030; 99283

== ENCOUNTER 2020-01-13 06:29 | Day surgery (SDC) | payer MEDICARE, OTHER ==
[~2020-01-13 06:29] MED LIST changes: +Ciprofloxacin in D5W 400 MG in Premix Bag 1 BAG IV ONE
[2020-01-13] MEDS ORDERED: Propofol 200 MG/20 ML SDV ONE (07:02)
[2020-01-13] MEDS ORDERED: Midazolam 1 MG/ML 2 ML SDV ONE (07:02)
[2020-01-13] MEDS ORDERED: fentaNYL 100 MCG/2 ML SDV ONE ×2 (07:02→09:01)
[2020-01-13] MEDS ORDERED: Lidocaine 2% 5 ML SDV ONE (07:04)
[2020-01-13] MEDS ORDERED: Ondansetron 4 MG/2 ML SDV ONE (07:04)
[2020-01-13] MEDS ORDERED: Ketorolac 30 MG/ML SDV ONE (07:04)
[2020-01-13] MEDS ORDERED: Glycopyrrolate 0.2 MG/ML SDV ONE ×3 (07:04→08:21)
[2020-01-13] MEDS ORDERED: Rocuronium Bromide 50 MG/5 ML Syringe ONE (07:06)
--- NOTE | 2020-01-13 07:10 | PCM.PREANE ---
Preanesthetic Assessment - Anesthesia/Transfusion/Family Hx Anesthesia History: Prior Anesthesia Without Reaction Other Type of Anesthesia Reaction Comment: "my daughter and I have problems with N&V after surgery" Family History of Anesthesia Reaction: No Transfusion History: Prior Transfusion Without Reaction Intubation History: Unknown - Review of Systems General: No Symptoms Pulmonary: No Symptoms Cardiovascular: No Symptoms Gastrointestinal: No Symptoms Neurological: No Symptoms Other: Reports: None - Physical Assessment Height: 5 ft 1 in Weight: 75.296 kg ASA Class: 3 Mental Status: Alert & Oriented x3 Airway Class: Mallampati = 2 Dentition: Reports: Normal Dentition Thyro-Mental Finger Breadths: 3 Mouth Opening Finger Breadths: 3 ROM/Head Extension: Full Lungs: Clear to Auscultation, Normal Respiratory Effort Cardiovascular: Regular Rate, Regular Rhythm - Allergies Allergies/Adverse Reactions: Allergies Allergy/AdvReac Type Severity Reaction Status Date / Time cephalexin Allergy Rash Verified 01/10/20 13:09 codeine Allergy Vomiting Verified 01/10/20 13:09 Penicillins Allergy Anaphylactic Verified 01/10/20 13:09 Shock prednisone Allergy "I do not Verified 01/10/20 13:09 take due to my psoriasis" Sulfa (Sulfonamide Allergy Anaphylactic Verified 01/10/20 13:09 Antibiotics) Shock - Blood Blood Available: No - Anesthesia Plan Pre-Op Medication Ordered: None - Acknowledgements Anesthesia Type Planned: General Anesthesia Pt an Appropriate Candidate for the Planned Anesthesia: Yes Alternatives and Risks of Anesthesia Discussed w Pt/Guardian: Yes Pt/Guardian Understands and Agrees with Anesthesia Plan: Yes PreAnesthesia Questionnaire HEENT History: Reports: Other (See Below) Other HEENT History: h/o glaucoma, wears glasses Cardiovascular History: Reports: High Cholesterol, Hypertension Respiratory History: Reports: None Gastrointestinal History: Reports: GERD Other Gastrointestinal History: occasional heartburn "depends on what I eat" Genitourinary History: Reports: Renal Calculus 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: Musculoskeletal History: Reports: Arthritis, Back Pain, Chronic, Fracture, Osteoporosis Other Musculoskeletal History: hx fx humerus, fx rt ankle and fx left wrist Neurological History: Reports: None Psychiatric History: Reports: None Endocrine/Metabolic History: Reports: Diabetes, Type II (glucose 136 this morning, takes meds in the morning), Obesity/BMI 30+ (BMI 31.4) Other Endocrine/Metabolic History: thyroid bx x2 Hematologic History: Reports: Blood Transfusion(s) Other Hematologic History: transfusion as an infant Immunologic History: Reports: None Oncologic (Cancer) History: Reports: None Dermatologic History: Reports: Psoriasis - Infectious Disease History Infectious Disease History: Reports: None - Past Surgical History HEENT Surgical History: Reports: None Female Surgical History: Reports: Hysterectomy Male Surgical History: Reports: Lithotripsy (ESWL) (multiple, last one in august of this year) Neurological Surgical History: Reports: Lumbar Spine Musculoskeletal Surgical History: Reports: Other (See Below) (ORIF left radius , ORIF kwok ankle ) - SUBSTANCE USE Smoking Status *Q: Former Smoker Tobacco Use Within Last Twelve Months: No Recreational Drug Use History: No - HOME MEDS Home Medications: Home Meds Aspirin 81 mg PO DAILY 05/15/19 [History] Cholecalciferol (Vitamin D3) [Vitamin D3] 1,000 unit PO DAILY 05/15/19 [History] Fish Oil/[place]-3 Fatty Acids [Fish Oil 1,000 MG] 8,000 mg PO DAILY 05/15/19 [History] Losartan [Cozaar] 100 mg PO DAILY 05/15/19 [History] Semaglutide [Ozempic] 0.5 mg SUBCUT WEEKLY 05/15/19 [History] SitaGLIPtin [Januvia] 100 mg PO DAILY 05/15/19 [History] atorvaSTATin [Lipitor] 20 mg PO DAILY 05/15/19 [History] traMADol [Ultram] 50 mg PO QID PRN 05/15/19 [History] Biotin 5,000 mcg PO DAILY 09/21/19 [History] Celecoxib 200 mg PO DAILY PRN 09/21/19 [History] Cyanocobalamin (Vitamin B12) [Vitamin B12] 1,000 mcg PO DAILY 09/21/19 [History] Vit A/Vit C/Vit E/Zinc/Copper [Preservision Areds Softgel] 1 tab PO DAILY 09/21/19 [History] Ibuprofen 600 mg PO Q6HR PRN #30 tablet 01/04/20 [Rx] Acetaminophen/oxyCODONE [Percocet 325-5 MG] 1 each PO ASDIRECTED PRN 01/10/20 [History] - CURRENT (IN HOUSE) MEDS Current Meds: Current Medications Lactated Ringer's (Ringers, Lactated) 1,000 mls @ 100 mls/hr IV ASDIRECTED CRISPIN Sodium Chloride (Normal Saline) 10 ml IV ASDIRECTED PRN PRN Reason: IV Use Sodium Chloride (Saline Flush) 10 ml FLUSH ASDIRECTED PRN PRN Reason: Keep Vein Open Sodium Chloride (Saline Flush) 2.5 ml FLUSH ASDIRECTED PRN PRN Reason: Keep Vein Open Discontinued Medications Fentanyl (Sublimaze) Confirm Administered Dose 100 mcg .ROUTE .STK-MED ONE Stop: 01/13/20 07:03 Ciprofloxacin/Dextrose 400 mg/ (Premix) 200 mls @ 200 mls/hr IV ONCALL ONE Stop: 01/13/20 06:59 Midazolam HCl (Versed 1 Mg/Ml) Confirm Administered Dose 2 mg .ROUTE .STK-MED ONE Stop: 01/13/20 07:03 Propofol (Diprivan 20 Ml) Confirm Administered Dose 200 mg .ROUTE .STK-MED ONE Stop: 01/13/20 07:03
[2020-01-13] MEDS ORDERED: fentaNYL 100 MCG/2 ML SDV IVPUSH PRN (08:49)
[2020-01-13] MEDS ORDERED: Acetaminophen 1,000 MG in Premix Bag 1 BAG IV PRN (08:49)
--- NOTE | 2020-01-13 10:17 | PCM.POSTAN ---
POST ANESTHESIA ASSESSMENT - MENTAL STATUS Mental Status: Alert, Oriented - VITAL SIGNS Vital Signs: Last Vital Signs Temp 36.7 C 01/13/20 09:33 Pulse 72 01/13/20 09:49 Resp 12 01/13/20 09:49 BP 114/51 L 01/13/20 09:49 Pulse Ox 92 L 01/13/20 09:49 - RESPIRATORY Respiratory Status: Respiratory Rate WNL, Airway Patent, O2 Saturation Stable - CARDIOVASCULAR CV Status: Pulse Rate WNL, Blood Pressure Stable - GASTROINTESTINAL GI Status: No Symptoms - PAIN Pain Score: 0 - POST OP HYDRATION Hydration Status: Adequate & Stable - OBSERVATIONS Free Text/Narrative:: No anesthesia problems
--- NOTE | 2020-01-13 10:57 | PCM48HPAN ---
Post Anesthesia Note - EVALUATION WITHIN 48HRS OF ANESTHETIC Vital Signs in Normal Range: Yes Patient Participated in Evaluation: Yes Respiratory Function Stable: Yes Airway Patent: Yes Cardiovascular Function Stable: Yes Hydration Status Stable: Yes Pain Control Satisfactory: Yes Nausea and Vomiting Control Satisfactory: Yes Mental Status Recovered: Yes Vital Signs: Last Vital Signs Temp 36.7 C 01/13/20 09:33 Pulse 72 01/13/20 09:49 Resp 12 01/13/20 09:49 BP 114/51 L 01/13/20 09:49 Pulse Ox 92 L 01/13/20 09:49 - COMMENTS/OBSERVATIONS Free Text/Narrative:: No anesthesia problems
[2020-01-13 11:23] VITALS: PULSE 70
[2020-01-13 11:24] VITALS: BP 113/59
--- NOTE | 2020-01-13 17:25 | OR ---
SURGEON: Earlene Raza M.D. DATE OF PROCEDURE: 01/13/2020 PREOPERATIVE DIAGNOSIS: Left mid ureteral stone. POSTOPERATIVE DIAGNOSIS: Left mid ureteral stone. OPERATION: Extracorporeal shock wave lithotripsy plus cystoscopy and double-J stent placement. DESCRIPTION OF PROCEDURE: The patient was given general anesthesia. The patient was positioned on the lithotripsy table. The position is adjusted until the stone could be treated and received eventually 2600 shocks. At the end of the treatment, the shadow of the stone did not quite spread or disappear as expected. She was then placed in dorsal lithotomy position. Cystoscopy was done. A guidewire was advanced in the left ureter and that would not go through the stone, so a Glidewire was then used that went by the stone up into the kidney over which a 6-Macedonian 26 cm double-J stent was placed. The position was good for fluoroscopy and the bladder was emptied, and the patient was moved to recovery room in good condition. PLAN: I will see her next week. We will get a KUB, see what , and go from there. RAFAELA / NOLA /[id number]
== END 2020-01-13 10:40 | disposition home or self-care (01) ==
LOC: MW.SDS 06:29
PROVIDERS: ATTEND Urology
DX: N20.1 Calculus of ureter (principal); E78.00 Pure hypercholesterolemia, unspecified; I10 Essential (primary) hypertension; K21.9 Gastro-esophageal reflux disease without esophagitis; E11.9 Type 2 diabetes mellitus without complications; E66.9 Obesity, unspecified; Z68.31 Body mass index [BMI] 31.0-31.9, adult; Z87.891 Personal history of nicotine dependence; Z79.899 Other long term (current) drug therapy; Z79.82 Long term (current) use of aspirin; Z88.0 Allergy status to penicillin; Z88.1 Allergy status to other antibiotic agents; Z88.2 Allergy status to sulfonamides; Z88.8 Allergy status to other drugs, medicaments and biological substances; Z79.84 Long term (current) use of oral hypoglycemic drugs
CPT/HCPCS: 50590; 52332; C1769; J0744; J1885; J2001; J2250; J2405; J2704; J3010; J3490; J7120; 00873

== ENCOUNTER 2020-02-01 08:16 | Day surgery (SDC) | payer MEDICARE, OTHER ==
[~2020-02-01 08:16] MED LIST changes: +Iopamidol 408 MG/ML 20 ML SDV ONE
--- NOTE | 2020-02-01 09:05 | PCM.PREANE ---
Preanesthetic Assessment - Anesthesia/Transfusion/Family Hx Anesthesia History: Prior Anesthesia Without Reaction Other Type of Anesthesia Reaction Comment: "my daughter and I have problems with N&V after surgery" Family History of Anesthesia Reaction: No Transfusion History: Prior Transfusion Without Reaction Intubation History: Unknown - Review of Systems General: No Symptoms Pulmonary: No Symptoms Cardiovascular: No Symptoms Gastrointestinal: No Symptoms Neurological: No Symptoms Other: Reports: None - Physical Assessment NPO Status Date: 01/31/20 Vital Signs: Last Vital Signs Temp 97.3 F 02/01/20 08:20 Pulse 74 02/01/20 08:20 Resp 16 02/01/20 08:20 BP 143/74 H 02/01/20 08:20 Pulse Ox 92 L 02/01/20 08:20 Height: 5 ft 1 in Weight: 73.482 kg ASA Class: 2 Mental Status: Alert & Oriented x3 Airway Class: Mallampati = 2 Dentition: Reports: Normal Dentition ROM/Head Extension: Full Lungs: Clear to Auscultation, Normal Respiratory Effort Cardiovascular: Regular Rate, Regular Rhythm - Allergies Allergies/Adverse Reactions: Allergies Allergy/AdvReac Type Severity Reaction Status Date / Time cephalexin Allergy Rash Verified 01/31/20 12:12 codeine Allergy Vomiting Verified 01/31/20 12:12 Penicillins Allergy Anaphylactic Verified 01/31/20 12:12 Shock prednisone Allergy "I do not Verified 01/31/20 12:12 take due to my psoriasis" Sulfa (Sulfonamide Allergy Anaphylactic Verified 01/31/20 12:12 Antibiotics) Shock - Anesthesia Plan Pre-Op Medication Ordered: None - Acknowledgements Anesthesia Type Planned: General Anesthesia Pt an Appropriate Candidate for the Planned Anesthesia: Yes Alternatives and Risks of Anesthesia Discussed w Pt/Guardian: Yes Pt/Guardian Understands and Agrees with Anesthesia Plan: Yes Additional Comments: pmh: dm2 with home glucose of 150 this am, gerd, htn- took am antihypertensive meds, glaucoma, pt not aware of the dx of spinal stenosis PLAN: Ga, ett vs lma at the discretion of the surgeon. PreAnesthesia Questionnaire HEENT History: Reports: Other (See Below) Other HEENT History: wears glasses Cardiovascular History: Reports: High Cholesterol, Hypertension Respiratory History: Reports: None Gastrointestinal History: Reports: GERD Genitourinary History: Reports: Renal Calculus [employer] History: Reports: Musculoskeletal History: Reports: Arthritis, Fracture, Osteoporosis Other Musculoskeletal History: hx fx humerus, fx rt ankle and fx left wrist Neurological History: Reports: None Psychiatric History: Reports: None Endocrine/Metabolic History: Reports: Diabetes, Type II, Obesity/BMI 30+ Other Endocrine/Metabolic History: thyroid bx x2 Hematologic History: Reports: Blood Transfusion(s) Other Hematologic History: transfusion as an infant Immunologic History: Reports: None Oncologic (Cancer) History: Reports: None Dermatologic History: Reports: Psoriasis - Infectious Disease History Infectious Disease History: Reports: None - Past Surgical History Head Surgeries/Procedures: Reports: None HEENT Surgical History: Reports: None, Cataract Surgery Cardiovascular Surgical History: Reports: None Respiratory Surgical History: Reports: None GI Surgical History: Reports: None Female Surgical History: Reports: Hysterectomy, Lithotripsy/ESWL Other Female Surgeries/Procedures: ESWL with stent placement 01/13/20 Male Surgical History: Endocrine Surgical History: Reports: None Neurological Surgical History: Reports: Lumbar Spine Other Neurological Surgeries/Procedures: hx back surgery Musculoskeletal Surgical History: Reports: Other (See Below) Other Musculoskeletal Surgeries/Procedures:: sx fx left wrist & right ankle with pins, Oncologic Surgical History: Reports: None Dermatological Surgical History: Reports: None - SUBSTANCE USE Smoking Status *Q: Former Smoker Tobacco Use Within Last Twelve Months: No Recreational Drug Use History: No - HOME MEDS Home Medications: Home Meds Aspirin 81 mg PO DAILY 05/15/19 [History] Cholecalciferol (Vitamin D3) [Vitamin D3] 1,000 unit PO DAILY 05/15/19 [History] Fish Oil/[place]-3 Fatty Acids [Fish Oil 1,000 MG] 8,000 mg PO DAILY 05/15/19 [History] Losartan [Cozaar] 100 mg PO DAILY 05/15/19 [History] Semaglutide [Ozempic] 0.5 mg SUBCUT WEEKLY 05/15/19 [History] SitaGLIPtin [Januvia] 100 mg PO DAILY 05/15/19 [History] atorvaSTATin [Lipitor] 20 mg PO DAILY 05/15/19 [History] traMADol [Ultram] 50 mg PO QID PRN 05/15/19 [History] Biotin 5,000 mcg PO DAILY 09/21/19 [History] Celecoxib 200 mg PO DAILY 09/21/19 [History] Vit A/Vit C/Vit E/Zinc/Copper [Preservision Areds Softgel] 1 tab PO DAILY 09/21/19 [History] Acetaminophen/oxyCODONE [Percocet 325-5 MG] 1 each PO ASDIRECTED PRN 01/10/20 [History] Lansoprazole [Prevacid] 30 mg PO DAILY 01/31/20 [History] Vitamin E 400 units PO DAILY 01/31/20 [History] - CURRENT (IN HOUSE) MEDS Current Meds: Current Medications Lactated Ringer's (Ringers, Lactated) 1,000 mls @ 100 mls/hr IV ASDIRECTED CRISPIN Last Admin: 02/01/20 08:40 Dose: 100 mls/hr Documented by: Sodium Chloride (Saline Flush) 10 ml FLUSH ASDIRECTED PRN PRN Reason: Keep Vein Open Sodium Chloride (Saline Flush) 2.5 ml FLUSH ASDIRECTED PRN PRN Reason: Keep Vein Open Sodium Chloride (Normal Saline) 10 ml IV ASDIRECTED PRN PRN Reason: IV Use Discontinued Medications Ciprofloxacin/Dextrose 400 mg/ (Premix) 200 mls @ 200 mls/hr IV ONCALL ONE Stop: 02/01/20 01:00 Iopamidol (Isovue-M 200 (41%)) Confirm Administered Dose 20 ml .ROUTE .STK-MED ONE Stop: 02/01/20 08:07
[2020-02-01] MEDS ORDERED: Propofol 200 MG/20 ML SDV ONE (09:06)
[2020-02-01] MEDS ORDERED: fentaNYL 100 MCG/2 ML SDV ONE ×2 (09:06→10:58)
[2020-02-01] MEDS ORDERED: Ondansetron 4 MG/2 ML SDV ONE (09:06)
[2020-02-01] MEDS ORDERED: Midazolam 1 MG/ML 2 ML SDV ONE (09:06)
[2020-02-01] MEDS ORDERED: Ciprofloxacin in D5W 200 ML ONE (09:36)
[2020-02-01] MEDS ORDERED: Rocuronium Bromide 50 MG/5 ML Syringe ONE (09:58)
[2020-02-01] MEDS ORDERED: Glycopyrrolate 0.2 MG/ML SDV ONE (10:08)
[2020-02-01] MEDS ORDERED: Non-Formulary Medication 1 Each (Tramadol [Ultram] 50 MG) PO PRN (11:30)
[2020-02-01] MEDS ORDERED: OXYCODONE PO PRN (11:30)
[2020-02-01] MEDS ORDERED: ACETAMINOPHEN PO PRN (11:30)
[2020-02-01] MEDS ORDERED: SEMAGLUTIDE 0.5 MG SUBCUT SCH (11:30)
--- NOTE | 2020-02-01 11:43 | PCM.POSTAN ---
POST ANESTHESIA ASSESSMENT - MENTAL STATUS Mental Status: Alert, Oriented - VITAL SIGNS Vital Signs: Last Vital Signs Temp 98.2 F 02/01/20 11:15 Pulse 58 L 02/01/20 11:30 Resp 9 L 02/01/20 11:30 BP 107/50 L 02/01/20 11:30 Pulse Ox 96 02/01/20 11:30 - RESPIRATORY Respiratory Status: Respiratory Rate WNL, Airway Patent, O2 Saturation Stable - CARDIOVASCULAR CV Status: Pulse Rate WNL, Blood Pressure Stable - GASTROINTESTINAL GI Status: No Symptoms - POST OP HYDRATION Hydration Status: Adequate & Stable
--- NOTE | 2020-02-01 11:43 | PCM48HPAN ---
Post Anesthesia Note - EVALUATION WITHIN 48HRS OF ANESTHETIC Vital Signs in Normal Range: Yes Patient Participated in Evaluation: Yes Respiratory Function Stable: Yes Airway Patent: Yes Cardiovascular Function Stable: Yes Hydration Status Stable: Yes Pain Control Satisfactory: Yes Nausea and Vomiting Control Satisfactory: Yes Mental Status Recovered: Yes Vital Signs: Last Vital Signs Temp 98.2 F 02/01/20 11:15 Pulse 58 L 02/01/20 11:30 Resp 9 L 02/01/20 11:30 BP 107/50 L 02/01/20 11:30 Pulse Ox 96 02/01/20 11:30
[2020-02-01 11:47] VITALS: BP 103/51
[2020-02-01 12:15] VITALS: PULSE 70
--- NOTE | 2020-02-01 12:38 | OR ---
SURGEON: Earlene Raza M.D. DATE OF PROCEDURE: 02/01/2020 PREOPERATIVE DIAGNOSIS: Multiple left renal pelvis and calyceal stones. POSTOPERATIVE DIAGNOSIS: Multiple left renal pelvis and calyceal stones. OPERATION: Left ureteroscopy, renoscopy, laser lithotripsy, and fragmentation of 2 stones. DESCRIPTION OF PROCEDURE: The patient was given general anesthesia. She is in the dorsal lithotomy position, prepped and draped in sterile drapes. Cystourethroscopy was done. The existing double-J stent was removed. Two guidewires were advanced. The stone was in the upper ureter, must have migrated into the renal pelvis. The rigid ureteroscope was attempted, could reach the upper ureter, but not enough to get into the renal pelvis. The flexible ureteroscope was advanced in the renal pelvis and the stone that was in the upper ureter was now in the renal pelvis and that was broken up into multitude of small pieces, some of which were removed using the Zero Tip basket and another stone in the mid pole calyx was also broken up into a multitude of smaller pieces, some of which were removed. With that done, after approximately an hour and a half of work, there was time to stop with [address] A 6-Mosotho 26 cm double-J stent was placed and position was confirmed with fluoroscopy. The bladder was emptied. The specimen was submitted and the patient was moved to recovery room in good condition. PLAN: I will see her in the office in a week to remove the double-J stent. RAFAELA / NOLA /[id number]
--- NOTE | 2020-02-01 19:23 | CR ---
Indication: Left ureteroscopy. Technique: Two intraoperative views of the left upper abdomen. Comparison: CT scan from January 04, 2020. Findings: The 1st image demonstrates a lead wire within the left renal collecting system from a retrograde approach. The 2nd image demonstrates the proximal end of a left ureteral stent. 25.4 seconds of intraoperative fluoroscopy was provided. Impression: Intraoperative images obtained. Dictated by Marjan Gudino MD @ Feb 01 2020 7:19PM Signed by Dr. Marjan Gudino @ Feb 01 2020 7:20PM
[2020-02-02] MEDS ORDERED: [UNRECOGNIZED DRUG - OTHER] PO SCH (09:00)
[2020-02-02] MEDS ORDERED: Non-Formulary Medication 1 Each (Celecoxib [Celecoxib] 200 MG) PO SCH (09:00)
[2020-02-02] MEDS ORDERED: Non-Formulary Medication 1 Each (Vitamin E [Vitamin E] 400 UNITS) PO SCH (09:00)
[2020-02-02] MEDS ORDERED: Non-Formulary Medication 1 Each (Aspirin [Aspirin] 81 MG) PO SCH (09:00)
[2020-02-02] MEDS ORDERED: Non-Formulary Medication 1 Each (Sitagliptin [Januvia] 100 MG) PO SCH (09:00)
[2020-02-02] MEDS ORDERED: OMEGA 3 FATTY ACIDS PO SCH (09:00)
[2020-02-02] MEDS ORDERED: Non-Formulary Medication 1 Each (Cholecalciferol (Vitamin D3) [Vitamin D3] 1,000 UNIT) PO SCH (09:00)
[2020-02-02] MEDS ORDERED: Non-Formulary Medication 1 Each (Vit A/Vit C/Vit E/Zinc/Copper [Preservision Areds Softgel PO SCH (09:00)
[2020-02-02] MEDS ORDERED: Non-Formulary Medication 1 Each (Atorvastatin [Lipitor] 20 MG) PO SCH (09:00)
[2020-02-02] MEDS ORDERED: Non-Formulary Medication 1 Each (Losartan 100 MG) PO SCH (09:00)
[2020-02-02] MEDS ORDERED: Non-Formulary Medication 1 Each (Biotin [Biotin] 5,000 MCG) PO SCH (09:00)
[2020-02-02] MEDS ORDERED: Non-Formulary Medication 1 Each (Lansoprazole [Prevacid] 30 MG) PO SCH (09:00)
== END 2020-02-01 12:40 | disposition home or self-care (01) ==
LOC: MW.SDS 08:16
PROVIDERS: ATTEND Urology
DX: N20.1 Calculus of ureter (principal); E11.9 Type 2 diabetes mellitus without complications; K21.9 Gastro-esophageal reflux disease without esophagitis; I10 Essential (primary) hypertension; E78.00 Pure hypercholesterolemia, unspecified; E66.9 Obesity, unspecified; Z98.890 Other specified postprocedural states; Z01.812 Encounter for preprocedural laboratory examination; Z20.828 Contact with and (suspected) exposure to other viral communicable diseases; Z88.0 Allergy status to penicillin; Z88.2 Allergy status to sulfonamides; Z88.8 Allergy status to other drugs, medicaments and biological substances; Z79.82 Long term (current) use of aspirin; Z79.899 Other long term (current) drug therapy; Z88.5 Allergy status to narcotic agent; Z68.30 Body mass index [BMI] 30.0-30.9, adult
CPT/HCPCS: 52356; 88300; J2001; J2250; J2405; J2704; J3010; J3490; J7120; 00918; C1769; C2617; Q9966

== ENCOUNTER 2020-04-13 06:44 | Day surgery (SDC) | payer MEDICARE, OTHER ==
[~2020-04-13 06:44] MED LIST changes: -Iopamidol 408 MG/ML 20 ML SDV ONE
[2020-04-13] MEDS ORDERED: Midazolam 1 MG/ML 2 ML SDV ONE (06:58)
[2020-04-13] MEDS ORDERED: fentaNYL 100 MCG/2 ML SDV ONE ×2 (06:58→09:35)
[2020-04-13] MEDS ORDERED: Propofol 200 MG/20 ML SDV ONE (06:58)
[2020-04-13] MEDS ORDERED: Ondansetron 4 MG/2 ML SDV ONE (06:59)
[2020-04-13] MEDS ORDERED: Ketorolac 30 MG/ML SDV ONE (06:59)
[2020-04-13] MEDS ORDERED: Lidocaine 2% 5 ML SDV ONE (06:59)
[2020-04-13] MEDS ORDERED: Glycopyrrolate 0.2 MG/ML SDV ONE (06:59)
--- NOTE | 2020-04-13 07:31 | PCM.PREANE ---
Preanesthetic Assessment - Anesthesia/Transfusion/Family Hx Anesthesia History: Prior Anesthesia Without Reaction Other Type of Anesthesia Reaction Comment: "my daughter and I have problems with N&V after surgery" Family History of Anesthesia Reaction: No Transfusion History: Prior Transfusion Without Reaction Intubation History: Unknown - Review of Systems General: No Symptoms Pulmonary: No Symptoms Cardiovascular: No Symptoms Gastrointestinal: No Symptoms Neurological: No Symptoms Other: Reports: None - Physical Assessment Vital Signs: Last Vital Signs Temp 36.6 C 04/13/20 06:51 Pulse 74 04/13/20 06:51 Resp 15 04/13/20 06:51 BP 115/63 04/13/20 06:51 Pulse Ox 93 L 04/13/20 06:51 Height: 5 ft 1 in Weight: 73.028 kg ASA Class: 3 Mental Status: Alert & Oriented x3 Airway Class: Mallampati = 1 Dentition: Reports: Normal Dentition Thyro-Mental Finger Breadths: 3 Mouth Opening Finger Breadths: 3 ROM/Head Extension: Full Lungs: Clear to Auscultation, Normal Respiratory Effort Cardiovascular: Regular Rate, Regular Rhythm - Allergies Allergies/Adverse Reactions: Allergies Allergy/AdvReac Type Severity Reaction Status Date / Time cephalexin Allergy Rash Verified 04/10/20 13:06 codeine Allergy Vomiting Verified 04/10/20 13:06 Penicillins Allergy Anaphylactic Verified 04/10/20 13:06 Shock prednisone Allergy "I do not Verified 04/10/20 13:06 take due to my psoriasis" Sulfa (Sulfonamide Allergy Anaphylactic Verified 04/10/20 13:06 Antibiotics) Shock - Blood Blood Available: No - Anesthesia Plan Pre-Op Medication Ordered: None - Acknowledgements Anesthesia Type Planned: General Anesthesia Pt an Appropriate Candidate for the Planned Anesthesia: Yes Alternatives and Risks of Anesthesia Discussed w Pt/Guardian: Yes Pt/Guardian Understands and Agrees with Anesthesia Plan: Yes PreAnesthesia Questionnaire HEENT History: Reports: Other (See Below) Other HEENT History: wears glasses Cardiovascular History: Reports: High Cholesterol, Hypertension Respiratory History: Reports: None Gastrointestinal History: Reports: GERD Genitourinary History: Reports: Renal Calculus [employer]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: Musculoskeletal History: Reports: Arthritis, Fracture, Osteoporosis Other Musculoskeletal History: hx fx humerus, fx rt ankle and fx left wrist Neurological History: Reports: None Psychiatric History: Reports: None Endocrine/Metabolic History: Reports: Diabetes, Type II (A1c is 7.5 per patient), Obesity/BMI 30+ (BMI 30.4) Other Endocrine/Metabolic History: thyroid bx x2 Hematologic History: Reports: Blood Transfusion(s) Other Hematologic History: transfusion as an infant Immunologic History: Reports: None Oncologic (Cancer) History: Reports: None Dermatologic History: Reports: Psoriasis - Infectious Disease History Infectious Disease History: Reports: None - Past Surgical History Head Surgeries/Procedures: Reports: None HEENT Surgical History: Reports: None, Cataract Surgery Cardiovascular Surgical History: Reports: None Respiratory Surgical History: Reports: None GI Surgical History: Reports: None Female Surgical History: Reports: Hysterectomy, Lithotripsy/ESWL, Other (See Below) Other Female Surgeries/Procedures: ESWL with stent placement 01/13/20, ureteroscopy with stone removal-left side 02/01/20 Endocrine Surgical History: Reports: None Neurological Surgical History: Reports: Lumbar Spine Other Neurological Surgeries/Procedures: hx back surgery Musculoskeletal Surgical History: Reports: Shoulder Surgery, Other (See Below) Other Musculoskeletal Surgeries/Procedures:: sx fx left wrist & right ankle with pins, total left shoulder 02/23/20 Oncologic Surgical History: Reports: None Dermatological Surgical History: Reports: None - SUBSTANCE USE Tobacco Use Status *Q: Former Tobacco User (quit 2005) Tobacco Use Within Last Twelve Months: No - HOME MEDS Home Medications: Home Meds Aspirin 81 mg PO DAILY 05/15/19 [History] Cholecalciferol (Vitamin D3) [Vitamin D3] 5,000 unit PO DAILY 05/15/19 [History] Fish Oil/[place]-3 Fatty Acids [Fish Oil 1,000 MG] 8,000 mg PO DAILY 05/15/19 [His tory] Losartan [Cozaar] 100 mg PO DAILY 05/15/19 [History] Semaglutide [Ozempic] 0.5 mg SUBCUT WEEKLY 05/15/19 [History] SitaGLIPtin [Januvia] 100 mg PO DAILY 05/15/19 [History] atorvaSTATin [Lipitor] 20 mg PO DAILY 05/15/19 [History] traMADol [Ultram] 50 mg PO QID PRN 05/15/19 [History] Biotin 5,000 mcg PO DAILY 09/21/19 [History] Celecoxib 200 mg PO DAILY 09/21/19 [History] Vit A/Vit C/Vit E/Zinc/Copper [Preservision Areds Softgel] 1 tab PO DAILY 09/21/19 [History] Lansoprazole [Prevacid] 30 mg PO DAILY 01/31/20 [History] Vitamin E 400 units PO DAILY 01/31/20 [History] Hydrocodone/Acetaminophen [Hydrocodone-Acetamin 10-325 mg] 0.5 - 1 tab PO ASDIRECTED PRN 04/10/20 [History] - CURRENT (IN HOUSE) MEDS Current Meds: Current Medications Lactated Ringer's (Ringers, Lactated) 1,000 mls @ 100 mls/hr IV ASDIRECTED CRISPIN Sodium Chloride (Saline Flush) 10 ml FLUSH ASDIRECTED PRN PRN Reason: Keep Vein Open Sodium Chloride (Saline Flush) 2.5 ml FLUSH ASDIRECTED PRN PRN Reason: Keep Vein Open Sodium Chloride (Normal Saline) 10 ml IV ASDIRECTED PRN PRN Reason: IV Use Discontinued Medications Fentanyl (Sublimaze) Confirm Administered Dose 100 mcg .ROUTE .STK-MED ONE Stop: 04/13/20 06:59 Glycopyrrolate (Robinul) Confirm Administered Dose 0.2 mg .ROUTE .STK-MED ONE Stop: 04/13/20 07:00 Ciprofloxacin/Dextrose 400 mg/ (Premix) 200 mls @ 200 mls/hr IV ONCALL ONE Stop: 04/13/20 01:00 Ketorolac Tromethamine (Toradol) Confirm Administered Dose 30 mg .ROUTE .STK-MED ONE Stop: 04/13/20 07:00 Lidocaine (Xylocaine-Mpf 2%) Confirm Administered Dose 5 ml .ROUTE .STK-MED ONE Stop: 04/13/20 07:00 Midazolam HCl (Versed 1 Mg/Ml) Confirm Administered Dose 2 mg .ROUTE .STK-MED ONE Stop: 04/13/20 06:59 Ondansetron HCl (Zofran) Confirm Administered Dose 4 mg .ROUTE .STK-MED ONE Stop: 04/13/20 07:00 Propofol (Diprivan 20 Ml) Confirm Administered Dose 200 mg .ROUTE .STK-MED ONE Stop: 04/13/20 06:59
[2020-04-13] MEDS ORDERED: fentaNYL 100 MCG/2 ML SDV IVPUSH PRN (07:33)
[2020-04-13] MEDS ORDERED: Acetaminophen 1,000 MG in Premix Bag 1 BAG IV PRN (07:33)
[2020-04-13] MEDS ORDERED: Iopamidol 408 MG/ML 20 ML SDV ONE (07:48)
[2020-04-13] MEDS ORDERED: Ciprofloxacin in D5W 200 ML ONE (08:19)
[2020-04-13] MEDS ORDERED: Phenylephrine 1% 10 MG/ML SDV ONE (08:37)
--- NOTE | 2020-04-13 10:48 | PCM.POSTAN ---
POST ANESTHESIA ASSESSMENT - MENTAL STATUS Mental Status: Alert, Oriented - VITAL SIGNS Vital Signs: Last Vital Signs Temp 36.6 C 04/13/20 06:51 Pulse 76 04/13/20 10:40 Resp 15 04/13/20 10:40 BP 107/45 L 04/13/20 10:40 Pulse Ox 93 L 04/13/20 10:40 - RESPIRATORY Respiratory Status: Respiratory Rate WNL, Airway Patent, O2 Saturation Stable - CARDIOVASCULAR CV Status: Pulse Rate WNL, Blood Pressure Stable - GASTROINTESTINAL GI Status: No Symptoms - PAIN Pain Score: 0 - POST OP HYDRATION Hydration Status: Adequate & Stable - OBSERVATIONS Free Text/Narrative:: No anesthesia problems
[2020-04-13 10:57] VITALS: BP 101/55; PULSE 74
[2020-04-13] MEDS ORDERED: Semaglutide [Ozempic] 0.5 MG SUBCUT SCH (11:00)
--- NOTE | 2020-04-13 11:22 | PCM48HPAN ---
Post Anesthesia Note - EVALUATION WITHIN 48HRS OF ANESTHETIC Vital Signs in Normal Range: Yes Patient Participated in Evaluation: Yes Respiratory Function Stable: Yes Airway Patent: Yes Cardiovascular Function Stable: Yes Hydration Status Stable: Yes Pain Control Satisfactory: Yes Nausea and Vomiting Control Satisfactory: Yes Mental Status Recovered: Yes Vital Signs: Last Vital Signs Temp 36.4 C 04/13/20 10:47 Pulse 74 04/13/20 10:47 Resp 14 04/13/20 10:47 BP 101/55 L 04/13/20 10:47 Pulse Ox 91 L 04/13/20 10:47 - COMMENTS/OBSERVATIONS Free Text/Narrative:: No anesthesia problems
--- NOTE | 2020-04-13 15:14 | OR ---
SURGEON: Earlene Raza M.D. DATE OF PROCEDURE: 04/13/2020 PREOPERATIVE DIAGNOSIS: Multiple large left ureteral stones, 4 in number; these are about the same size, each at 9 mm. POSTOPERATIVE DIAGNOSIS: Multiple large left ureteral stones, 4 in number; these are about the same size, each at 9 mm. OPERATIONS PERFORMED: 1. Ureteroscopy. 2. Laser lithotripsy for 3 of the 4, the last one escaped into the kidney, and I was not able to retrieve it. DESCRIPTION OF OPERATION: The patient was given general anesthesia. She was placed in the dorsal lithotomy position and prepped and draped in sterile drapes. Cystourethroscopy was done. A guidewire was attempted, could not pass through the first stone. So, a Glidewire was passed through all the up into the kidney. The 1st stone was broken up using the laser. The stone pieces were removed using the Zero tip basket. The 2nd one was immediately behind it. That again was broken up with the laser, and the pieces were removed using the Zero tip basket. At this point, the Glidewire was still in place. Attempt at putting the Accordion above the next stone, which was rather close to the renal pelvis in the upper ureter. That stone ended up being pushed back into the kidney. So, the rigid ureteroscope was removed, the flexible ureteroscope was put over a new guidewire that was advanced through the rigid ureteroscope, and the stone was actually pulled back into the ureter using the Zero tip basket. The stone then was kept in place. The laser was applied to it until it was completely broken up and removed. At this point, the patient had been under anesthesia for a little over 2 hours, and I decided to put a double-J stent in. The ureter looked remarkably safe. There was no significant damage to the ureter. To avoid having the large stone or more down the ureter, I put the stent in that was 6-Belarusian 26 cm. Position was confirmed on fluoroscopy. The patient tolerated the procedure well and was moved to the recovery room in good condition. PLAN: I will leave the stent in until I come back from break, get another CT scan, and probably go rest of the stone . RAFAELA / NOLA /[id number]
--- NOTE | 2020-04-13 16:59 | CR ---
HISTORY: Lithotripsy. TECHNIQUE: Intraoperative fluoroscopy. 11 seconds fluoroscopy time. One image. FINDINGS: Ureteral stent. Dictated by Brent Yuen MD @ Apr 13 2020 4:58PM Signed by Dr. Brent Yuen @ Apr 13 2020 4:58PM
[2020-04-14] MEDS ORDERED: Non-Formulary Medication 1 Each (Cholecalciferol (Vitamin D3) [Vitamin D3] 5,000 UNIT) PO SCH (09:00)
[2020-04-14] MEDS ORDERED: Non-Formulary Medication 1 Each (Biotin [Biotin] 5,000 MCG) PO SCH (09:00)
[2020-04-14] MEDS ORDERED: Non-Formulary Medication 1 Each (Losartan 100 MG) PO SCH (09:00)
[2020-04-14] MEDS ORDERED: atorvaSTATin 20 MG Tab PO SCH (09:00)
[2020-04-14] MEDS ORDERED: Non-Formulary Medication 1 Each (Vitamin E [Vitamin E] 400 UNITS) PO SCH (09:00)
[2020-04-14] MEDS ORDERED: Fish Oil/Omega-3 Fatty Acids 1 Gm Cap PO SCH (09:00)
[2020-04-14] MEDS ORDERED: Aspirin 81 MG Tab.Chew PO SCH (09:00)
[2020-04-14] MEDS ORDERED: Non-Formulary Medication 1 Each (Celecoxib [Celecoxib] 200 MG) PO SCH (09:00)
[2020-04-14] MEDS ORDERED: Non-Formulary Medication 1 Each (Vit A/Vit C/Vit E/Zinc/Copper [Preservision Areds Softgel PO SCH (09:00)
[2020-04-14] MEDS ORDERED: Non-Formulary Medication 1 Each (Lansoprazole [Prevacid] 30 MG) PO SCH (09:00)
== END 2020-04-13 11:20 | disposition home or self-care (01) ==
LOC: MW.SDS 06:44
PROVIDERS: ATTEND Urology
DX: N13.2 Hydronephrosis with renal and ureteral calculous obstruction (principal); M81.0 Age-related osteoporosis without current pathological fracture; E11.9 Type 2 diabetes mellitus without complications; K21.9 Gastro-esophageal reflux disease without esophagitis; I10 Essential (primary) hypertension; M53.9 Dorsopathy, unspecified; M48.062 Spinal stenosis, lumbar region with neurogenic claudication; E78.00 Pure hypercholesterolemia, unspecified; E66.9 Obesity, unspecified; Z88.0 Allergy status to penicillin; Z88.2 Allergy status to sulfonamides; Z79.82 Long term (current) use of aspirin; Z88.8 Allergy status to other drugs, medicaments and biological substances; Z79.899 Other long term (current) drug therapy; Z79.4 Long term (current) use of insulin; Z98.890 Other specified postprocedural states; Z88.5 Allergy status to narcotic agent; Z68.30 Body mass index [BMI] 30.0-30.9, adult
CPT/HCPCS: 52356; C1769; C2617; J0744; J1885; J2001; J2250; J2370; J2405; J2704; J3010; J3490; J7120; Q9966

== ENCOUNTER 2021-11-29 17:25 | Emergency (ER) | payer MEDICARE, OTHER ==
[2021-11-29] MEDS ORDERED: Sodium Chloride 0.9% 1,000 ML IV ONE ×2 (18:25→20:34)
[2021-11-29 19:08] LABS: CARBON DIOXIDE,CO2 17.1 mmol/L (21.0-32.0); POTASSIUM,K 5.6 mmol/L (3.5-5.1)
[2021-11-29] MEDS ORDERED: Iopamidol 755 MG/ML 500 ML Multipack Bottle IVPUSH STA (20:28)
[2021-11-29] MEDS ORDERED: Ciprofloxacin in D5W 400 MG in Premix Bag 1 BAG IV ONE ×2 (20:34)
[2021-11-29] MEDS ORDERED: VANCOmycin 1.5 GM/300 ML 300 ML IV ONE (21:00)
[2021-11-29] MEDS ORDERED: Heparin Sodium 5,000 Units/ML Vial IVPUSH ONE ×2 (21:12→21:34)
[2021-11-29] MEDS ORDERED: Heparin Sodium/0.45% NaCl 500 ML IV SCH ×2 (21:15→21:45)
[2021-11-29 23:41] VITALS: BP 96/66; PULSE 76
[2021-11-30] MEDS ORDERED: VANCOmycin 1.25 GM/250 ML 250 ML IV SCH (21:00)
== END 2021-11-29 23:33 ==
LOC: MW.ED 17:25
DX: I26.99 Other pulmonary embolism without acute cor pulmonale (principal); I10 Essential (primary) hypertension; E11.9 Type 2 diabetes mellitus without complications; E78.5 Hyperlipidemia, unspecified; E78.00 Pure hypercholesterolemia, unspecified; Z88.5 Allergy status to narcotic agent; Z88.0 Allergy status to penicillin; Z88.1 Allergy status to other antibiotic agents; Z88.8 Allergy status to other drugs, medicaments and biological substances; Z88.2 Allergy status to sulfonamides; Z79.899 Other long term (current) drug therapy; Z20.822 Contact with and (suspected) exposure to COVID-19
CPT/HCPCS: 36415; 71045; 71275; 80053; 82803; 83605; 83735; 84443; 84484; 85025; 85379; 85730; 86140; 87040; 93005; 96361; 96365; 96368; 96375; 99285; J1644; J3370; J3490; J7030; Q9967; U0002; 93010

== ENCOUNTER 2022-06-28 19:57 | Emergency (ER) | payer MEDICARE, OTHER ==
[2022-06-28] MEDS ORDERED: Ketorolac 30 MG/ML SDV IVPUSH ONE (20:34)
[2022-06-28 20:49] LABS: CARBON DIOXIDE,CO2 21.4 mmol/L (21.0-32.0); POTASSIUM,K 3.7 mmol/L (3.5-5.1)
[2022-06-28 23:08] VITALS: BP 132/91; PULSE 128
== END 2022-06-28 23:08 | disposition home or self-care (01) ==
LOC: MW.ED 19:57
DX: L02.212 Cutaneous abscess of back [any part, except buttock and flank] (principal); N13.5 Crossing vessel and stricture of ureter without hydronephrosis; N20.0 Calculus of kidney; E78.00 Pure hypercholesterolemia, unspecified; I10 Essential (primary) hypertension; K21.9 Gastro-esophageal reflux disease without esophagitis; E11.9 Type 2 diabetes mellitus without complications; M19.90 Unspecified osteoarthritis, unspecified site; E66.9 Obesity, unspecified; Z68.34 Body mass index [BMI] 34.0-34.9, adult; Z88.1 Allergy status to other antibiotic agents; Z88.5 Allergy status to narcotic agent; Z88.0 Allergy status to penicillin; Z88.8 Allergy status to other drugs, medicaments and biological substances; Z88.2 Allergy status to sulfonamides; Z79.01 Long term (current) use of anticoagulants; Z79.899 Other long term (current) drug therapy
CPT/HCPCS: 36415; 74176; 80048; 81001; 83880; 85025; 93005; 96374; 99284; J1885

== ENCOUNTER 2023-07-30 23:07 | Emergency (ER) | payer MEDICARE, OTHER ==
[2023-07-30] MEDS: Ondansetron 4 MG/2 ML SDV IVPUSH ONE (23:37)
[2023-07-30] MEDS: Morphine 4 MG/ML Syringe IVPUSH ONE (23:37)
[2023-07-30 23:42] LABS: BASOPHILS ABSOLUTE AUTO 0.07 K/uL (0.00-0.20); BASOPHILS PERCENT AUTO 0.7 % (0.0-1.0); HEMATOCRIT 46.7 % (37.0-47.0); IMMATURE GRAN ABSOLUTE AUTO 0.06 K/uL (0.00-0.05); IMMATURE GRAN PERCENT AUTO 0.6 % (0.0-0.4); LYMPHOCYTES ABSOLUTE AUTO 1.35 K/uL (1.00-4.80); LYMPHOCYTES PERCENT AUTO 13.9 % (24.0-44.0); MEAN CORPUSCULAR HEMOGLOBIN 26.7 pg (28.0-32.0); MEAN CORPUSCULAR HGB CONC 32.1 g/dL (32.0-36.0); MEAN CORPUSCULAR VOLUME 83.2 fL (83.0-99.0); MEAN PLATELET VOLUME 11.3 fL (9.4-12.3); MONOCYTES ABSOLUTE AUTO 0.44 K/uL (0.00-0.80); MONOCYTES PERCENT AUTO 4.5 % (0.0-8.0); NEUTROPHILS ABSOLUTE AUTO 7.69 K/uL (1.80-7.70); NEUTROPHILS PERCENT AUTO 79.3 % (41.0-71.0); PLATELET COUNT,PLT 190 K/uL (150-400); RED BLOOD CELL COUNT 5.61 M/uL (4.10-5.30); WHITE BLOOD CELL COUNT,WBC 9.71 K/uL (3.9-11.3)
[2023-07-31 00:03] LABS: A/G RATIO 1.3 (0.9-1.6); ALBUMIN 3.9 g/dL (3.4-5.0); BILIRUBIN TOTAL 0.8 mg/dL (0.2-1.0); CALCIUM 9.6 mg/dL (8.5-10.1); CARBON DIOXIDE,CO2 19.8 mmol/L (21.0-32.0); CREATININE 1.1 mg/dL (0.6-1.0); EST CRCL DRUG DOSING (CG) 36.02 mL/min
[2023-07-31 00:03] LABS: APPEARANCE,URINE CLEAR; BILIRUBIN,URINE NEGATIVE (NEGATIVE); COLOR,URINE YELLOW; GLUCOSE,URINE NEGATIVE (NEGATIVE); KETONES,URINE NEGATIVE (NEGATIVE); LEUKOCYTE ESTERASE,URINE NEGATIVE (NEGATIVE); NITRITE,URINE NEGATIVE (NEGATIVE); OCCULT BLOOD,URINE TRACE-INTACT (NEGATIVE); PROTEIN,URINE NEGATIVE (NEGATIVE); UROBILINOGEN,URINE 0.2 EU/dL (<2.0)
[2023-07-31] MEDS: HYDROmorphone 1 MG/ML Syringe IVPUSH ONE (00:03)
[2023-07-31 00:10] LABS: BACTERIA,URINE FEW (NEGATIVE); EPITHELIAL CELLS,URINE MODERATE (NONE-FEW)
[2023-07-31 03:21] VITALS: BP 129/81; PULSE 78
== END 2023-07-31 03:47 ==
LOC: MW.ED 23:07
DX: N13.2 Hydronephrosis with renal and ureteral calculous obstruction (principal); I11.0 Hypertensive heart disease with heart failure; I50.9 Heart failure, unspecified; E78.00 Pure hypercholesterolemia, unspecified; K21.9 Gastro-esophageal reflux disease without esophagitis; E11.9 Type 2 diabetes mellitus without complications; E66.9 Obesity, unspecified; Z75.8 Other problems related to medical facilities and other health care; Z79.899 Other long term (current) drug therapy; Z88.1 Allergy status to other antibiotic agents; Z88.5 Allergy status to narcotic agent; Z88.0 Allergy status to penicillin; Z88.2 Allergy status to sulfonamides; Z79.01 Long term (current) use of anticoagulants; Z68.29 Body mass index [BMI] 29.0-29.9, adult
CPT/HCPCS: 36415; 74176; 80053; 81001; 85025; 96374; 96375; 99285; J1170; J2270; J2405